=== PATIENT | female | born 1985 | race Caucasian/White ===

== ENCOUNTER 2016-09-21 17:34 | Inpatient (IN) ==
[2016-09-21] MEDS ORDERED: NS 1,000 ML IV ONE ×2 (18:15→22:16)
[2016-09-21] MEDS ORDERED: ZOFRAN IV ONE ×2 (18:15→19:46)
--- NOTE | 2016-09-21 18:24 | PROVIDER DOCUMENTATION ---
HPI-Abdominal Pain/GI Problem <ArroyoZully - Last Filed: 09/21/16 19:54> - General Source: patient - History of Present Illness-ABD Nature of Presenting Problems: 31 Y/O F presents to ED with Abdominal Pain. Pt states that she has had an onset of 3x days with RUQ. Pt c/o of severe V/N. Pt states that there is radiation to her back that has been constant, stabbing feeling , unrelieved with OTC meds. pt recently had a baby 6 weeks ago. With SOB. Abdominal Pain Onset Location: reports: RUQ Pain Radiation: reports: back Quality of Pain: reports: stabbing Severity in ED: reports: moderate, severe Onset/Duration: reports: 3 days ago Timing: reports: still present, constant Associated Symptoms: reports: nausea, shortness of breath, vomiting. denies: diarrhea <Nikkie Hughes - Last Filed: 09/22/16 02:05> - General Chief Complaint: Abdominal Pain Stated Complaint: ABD PAIN Time Seen by Provider: 09/21/16 17:40 Allergies/Adverse Reactions: Patient Allergies Allergy/AdvReac Type Severity Reaction Status Date / Time latex AdvReac SWELLING Verified 09/21/16 17:39 steroids AdvReac SWELLING Uncoded 09/21/16 17:39 Home Medications: Home Medication List Medication Instructions Recorded Confirmed Last Taken Type No Home Medications 09/21/16 09/21/16 Unknown History Review of Systems - Adult - REVIEW OF SYSTEMS - ADULT Constitutional: denies: chills, fever Eyes: reports: no symptoms reported Ears, Nose, Mouth & Throat: reports: no symptoms reported Cardiovascular: reports: no symptoms reported Respiratory: reports: shortness of breath. denies: cough Gastrointestinal: reports: abdominal pain, nausea, vomiting. denies: diarrhea Genitourinary: reports: no symptoms reported Musculoskeletal: reports: no symptoms reported Integumentary: reports: no symptoms reported Neurological: reports: no symptoms reported Psychiatric: reports: no symptoms reported Endocrine: reports: no symptoms reported Hematologic/Lymphatic: reports: no symptoms reported Allergic/Immunologic: reports: no symptoms reported All Other Systems: Reviewed and Negative <Nikkie Hughes - Last Filed: 09/22/16 02:05> Past History - Adult - PAST MEDICAL HISTORY-ADULT Review of Records: reports: Old Records Reviewed, Nursing Assessment Review, Medications Reviewed, Social history reviewed & non-contributory. - SOCIAL HISTORY Smoking: non-smoker Substance Use: none/never Living Situation: family <Nikkie Hughes - Last Filed: 09/22/16 02:05> Physical Exam-General - CONSTITUTIONAL General Appearance: appears well, alert, no apparent distress - EYES Eyes: PERRL/EOMI, pink conjunctivae, fundi clear, no AV nicking - HEAD, EARS, NOSE, MOUTH & THROAT HENMT: normocephalic/atraumatic, moist mucous membranes, normal ENT inspection, TMs normal, pharynx normal - NECK Neck: non-tender, full range of motion, supple, normal inspection - RESPIRATORY Respiratory: chest non-tender, lungs clear, normal breath sounds - CARDIOVASCULAR Cardiovascular: normal peripheral pulses, regular rate, rhythm - GASTROINTESTINAL (ABDOMEN) Abdominal Exam: normal bowel sounds, tenderness - LYMPHATIC Lymphatic: no adenopathy - MUSCULOSKELETAL Back Exam: normal inspection, no CVA tenderness, no vertebral tenderness Extremity: normal range of motion, non-tender - SKIN Integumentary: normal color, normal turgor, warm/dry - NEUROLOGIC Neurologic: commercial drafter II-XII nml as tested - PSYCHIATRIC Psych/Mental Status: normal mood/affect, normal thought content, normal thought process, oriented x 3 <Nikkie Hughes - Last Filed: 09/22/16 02:05> Progress - PLAN OF CARE/RESULTS Progress/Plan/Lab Results: 1939: discussed patient's care with Dr. Tillman, 1944: Dr. Tillman at bedside with patient - CHANGE OF SHIFT REPORT (ED Provider) Report Given and Care Transferred to:: nichole Time of Transfer: 19:50 Items Pending: CT/MRI Results <Zully Cruz - Last Filed: 09/21/16 19:54> - PLAN OF CARE/RESULTS Progress/Plan/Lab Results: Laboratory Tests 09/21/16 09/21/16 09/21/16 18:25 18:25 18:25 WBC 16.35 H RBC 5.08 Hgb 14.4 Hct 42.2 MCV 83.1 MCH 28.3 MCHC 34.1 RDW Std Deviation 13.3 Plt Count 375 MPV 9.5 Immature Gran % (Auto) 0.2 Neut % (Auto) 87.9 H Lymph % (Auto) 6.5 L Divide % (Auto) 4.9 Eos % (Auto) 0.2 Baso % (Auto) 0.3 Immature Gran # (Auto) 0.03 Neut # (Auto) 14.36 H Lymph # (Auto) 1.07 L Divide # (Auto) 0.80 H Eos # (Auto) 0.04 Baso # (Auto) 0.05 Segmented Neutrophils 96 H Lymphocytes 4 L Sodium 141 Potassium 3.1 L Chloride 102 Carbon Dioxide 20 L Anion Gap 19 BUN 7 L Creatinine 0.6 Estimated GFR/1.73 m2 > 60 BUN/Creatinine Ratio 12 Glucose 123 H Calculated Osmolality 281 Calcium 9.3 Magnesium Total Bilirubin 4.30 H AST 98 H ALT 104 H Alkaline Phosphatase 191 H Total Protein 7.7 Albumin 4.4 Globulin 3.0 Albumin/Globulin Ratio 1.0 Amylase > 7500 H Lipase > 3000 H Plasma Lactate Urine Source Urine Color Urine Clarity Urine pH Ur Specific [place] Urine Protein Urine Ketones Urine Blood Urine Nitrite Urine Bilirubin Urine Urobilinogen Urine Microscopic RBC Urine WBC Urine Microscopic WBC Ur Epithelial Cells Urine Crystals Urine Bacteria Urine Casts Urine Yeast Urine Glucose Plasma/Serum Ethyl Alc 09/21/16 09/21/16 09/21/16 18:33 18:33 18:33 WBC RBC Hgb Hct MCV MCH MCHC RDW Std Deviation Plt Count MPV Immature Gran % (Auto) Neut % (Auto) Lymph % (Auto) Divide % (Auto) Eos % (Auto) Baso % (Auto) Immature Gran # (Auto) Neut # (Auto) Lymph # (Auto) Divide # (Auto) Eos # (Auto) Baso # (Auto) Segmented Neutrophils Lymphocytes Sodium Potassium Chloride Carbon Dioxide Anion Gap BUN Creatinine Estimated GFR/1.73 m2 BUN/Creatinine Ratio Glucose Calculated Osmolality Calcium Magnesium 1.8 Total Bilirubin AST ALT Alkaline Phosphatase Total Protein Albumin Globulin Albumin/Globulin Ratio Amylase Lipase Plasma Lactate Urine Source CLEAN CATCH Urine Color ZEINAB Urine Clarity VERY CLOUDY A Urine pH 5.0 Ur Specific [place] 1.020 Urine Protein 1+(30 mg/dL) A Urine Ketones 3+(Large) A Urine Blood 2+ A Urine Nitrite NEGATIVE Urine Bilirubin 3+ A Urine Urobilinogen 3+(8 mg/dL) Urine Microscopic RBC 10-20 A Urine WBC 2+ A Urine Microscopic WBC 20-40 A Ur Epithelial Cells >10 A Urine Crystals NONE SEEN Urine Bacteria 2+ Urine Casts NONE SEEN Urine Yeast NONE SEEN Urine Glucose NEGATIVE Plasma/Serum Ethyl Alc 09/21/16 20:53 WBC RBC Hgb Hct MCV MCH MCHC RDW Std Deviation Plt Count MPV Immature Gran % (Auto) Neut % (Auto) Lymph % (Auto) Divide % (Auto) Eos % (Auto) Baso % (Auto) Immature Gran # (Auto) Neut # (Auto) Lymph # (Auto) Divide # (Auto) Eos # (Auto) Baso # (Auto) Segmented Neutrophils Lymphocytes Sodium Potassium Chloride Carbon Dioxide Anion Gap BUN Creatinine Estimated GFR/1.73 m2 BUN/Creatinine Ratio Glucose Calculated Osmolality Calcium Magnesium Total Bilirubin AST ALT Alkaline Phosphatase Total Protein Albumin Globulin Albumin/Globulin Ratio Amylase Lipase Plasma Lactate 0.9 Urine Source Urine Color Urine Clarity Urine pH Ur Specific [place] Urine Protein Urine Ketones Urine Blood Urine Nitrite Urine Bilirubin Urine Urobilinogen Urine Microscopic RBC Urine WBC Urine Microscopic WBC Ur Epithelial Cells Urine Crystals Urine Bacteria Urine Casts Urine Yeast Urine Glucose Plasma/Serum Ethyl Alc Orders Category Date Time Status Admit - [facility] Routine AdmDCTranf 09/21/16 22:36 Ordered Activity - Strict Bedrest ORDERED Care 09/21/16 22:35 Active Call Admitting on Arrival AT ADMISSION Care 09/21/16 22:37 Active ED: Urine Bedside ORDERED Care 09/21/16 18:17 Completed Nursing- MD Consult Request ROUTINE Care 09/21/16 22:40 Completed Saline Loc DIRECTED Care 09/21/16 22:35 Active Vital Signs Order ARRIVAL TO ROOM Care 09/21/16 22:35 Active Physician/Provider Consults Stat Cons 09/21/16 22:39 Ordered NPO Diet 09/21/16 22:38 Active ABDOMEN/PELVIS W/CONTRAST [CT] Stat Exams 09/21/16 19:07 Taken AMYLASE [CHEM] Stat Lab 09/21/16 18:25 Completed CBC WITH DIFF [HEME] Stat Lab 09/21/16 18:25 Completed CMP [COMPREHENSIVE METABOLIC PANEL] [CHEM] Stat Lab 09/21/16 18:25 Completed ETOH [ALCOHOL BLOOD] Stat Lab 09/21/16 18:33 Completed LACTATE, PLASMA [CHEM] Stat Lab 09/21/16 20:53 Completed LIPASE [CHEM] Stat Lab 09/21/16 18:25 Completed MAGNESIUM [CHEM] Stat Lab 09/21/16 18:33 Completed UA [URINALYSIS PL] [URINALYSIS] Stat Lab 09/21/16 18:33 Completed URINE CULTURE [RM] Routine Lab 09/21/16 19:28 Received URINE MICROSCOPIC [URINALYSIS] Stat Lab 09/21/16 18:33 Completed 0.9% Sodium Chloride Inj [Ns] 1,000 ml Med 09/21/16 22:16 Active IV 150 mls/hr 0.9% Sodium Chloride Inj [Ns] 1,000 ml Med 09/21/16 22:45 Active IV 150 mls/hr 0.9% Sodium Chloride Inj [Ns] 1,000 ml Med 09/21/16 18:15 Discontinued IV 999 mls/hr Acetaminophen [Tylenol] Med 09/21/16 18:54 Discontinued 1,000 mg .ROUTE .STK-MED ONE Acetaminophen [Tylenol] Med 09/21/16 18:56 Discontinued 1,000 mg PO NOW ONE Diphenhydramine [Benadryl] Med 09/21/16 22:04 Discontinued 50 mg IV NOW ONE Famotidine [Pepcid] Med 09/21/16 22:04 Discontinued 20 mg IV NOW ONE Hydromorphone [Dilaudid] Med 09/22/16 01:34 Discontinued 1 mg .ROUTE .STK-MED ONE Morphine Med 09/22/16 00:24 Discontinued 10 mg .ROUTE .STK-MED ONE Morphine Med 09/21/16 22:35 Active 2 mg IV Q2H PRN PRN Morphine Med 09/21/16 19:46 Discontinued 4 mg IV NOW ONE Morphine Med 09/21/16 21:44 Discontinued 4 mg IV NOW ONE Ondansetron [Zofran] Med 09/21/16 18:15 Discontinued 4 mg IV NOW ONE Ondansetron [Zofran] Med 09/21/16 19:46 Discontinued 4 mg IV NOW ONE Piperacil/Tazobact 3.375 gm/Ns [Zosyn 3.375 gm/Ns] 50 Med 09/21/16 22:15 Discontinued ml IV NOW Piperacil/Tazobact 3.375 gm/Ns [Zosyn 3.375 gm/Ns] 50 Med 09/22/16 02:00 Active ml IV Q6HR Sodium Chloride 0.9% Med 09/21/16 22:04 Discontinued 5 - 10 ml INJ NOW ONE Sodium Chloride 0.9% 10 ml Med 09/22/16 00:25 Discontinued .ROUTE As Directed Telemetry [OM.EQ] Routine Oth 09/21/16 22:35 Active Transfer/Admit Order [TRANSFER] Routine Transfer 09/21/16 22:35 Completed Vital Signs - 24 hr 09/21/16 09/21/16 09/21/16 17:37 18:43 20:17 Temperature 98.0 F Pulse Rate 118 H 82 92 H Respiratory 18 20 27 H Rate Blood Pressure 112/80 126/79 109/76 O2 Sat by Pulse 98 100 95 Oximetry 09/21/16 09/21/16 09/22/16 22:24 23:42 00:36 Temperature 100.5 F H 98.7 F Pulse Rate 94 H 100 H 90 Respiratory 24 24 Rate Blood Pressure 122/81 122/81 130/64 O2 Sat by Pulse 93 L 96 98 Oximetry - CT/MRI 1 CT Study: Abdomen, Pelvis Impression: Abnormal (Acute pancreatitis with substantial peripancreatic edema. Distended gallbladder which appears to contain small noncalcified gallstones and some sludge) <Nikkie Hughes - Last Filed: 09/22/16 02:05> Departure <Zully Cruz - Last Filed: 09/21/16 19:54> - Departure Time of Disposition Order: 22:35 Certified Medical Emergency: Emergent <Nikkie Hughes - Last Filed: 09/22/16 02:05> - Departure DIAGNOSIS: Gallstone pancreatitis Disposition: ADMITTED INPATIENT 09 Condition: Stable Attestation - Scribe Verification/Attestation Scribe:: Nikkie Hughes Acting as Scribe for:: Silvestre Tillman Scribe documention review:: This chart was documented by a scribe and accurately reflects the service the provider performed and the decisions made by the provider. - Physician/ AMANDA Attestation Patient care was provided by Advanced Practice Provider:: Yes Advanced Practice Provider:: Zully Cruz Advanced Practice Provider documentation review:: The Mid-level provider documentation, treatment plan and medical decision making was reviewed by the physician who agrees with all treatment and medical decision making by the MLP. <Nikkie Hughes - Last Filed: 09/22/16 02:05> Physician Attestation
[2016-09-21 18:38] LABS: URINE SOURCE CLEAN CATCH
[2016-09-21 18:46] LABS: BASO% 0.3 % (0.0-0.8); EOS# 0.04 X1000 (0.0-0.7); EOS% 0.2 % (0.0-10.0); HEMATOCRIT 42.2 % (37.0-47.0); HEMOGLOBIN 14.4 g/dL (12.0-16.0); IMM GRAN# 0.03 X1000 (0.0-0.04); IMM GRAN% 0.2 % (0.0-0.5); LYMPH# 1.07 X1000 (1.2-3.4); LYMPH% 6.5 % (20.5-51.1); MANUAL DIFF NEEDED? YES; MCH 28.3 PG (27-31); MCHC 34.1 g/dL (33-37); MCV 83.1 FL (81-99); MONO% 4.9 % (1.7-9.3); MPV 9.5 FL (7.4-10.4); NEUT% 87.9 % (42.2-75.2); PLT 375 X1000 (130-400); RBC 5.08 XMIL (4.2-5.4)
[2016-09-21] MEDS ORDERED: TYLENOL ONE (18:54)
[2016-09-21] MEDS ORDERED: TYLENOL PO ONE (18:56)
[2016-09-21 19:04] LABS: BILIRUBIN URINE 3+ (NEGATIVE); BLOOD URINE 2+ (NEGATIVE); CLARITY VERY CLOUDY (CLEAR); COLOR AMBER; GLUCOSE URINE NEGATIVE (NEGATIVE); LEUKOCYTES URINE 2+ (NEGATIVE); NITRITE URINE NEGATIVE (NEGATIVE); PROTEIN URINE 1+(30 mg/dL) mg/dL (NEGATIVE); URINE MICROSCOPIC NEEDED? YES
[2016-09-21 19:15] LABS: LYMPHS 4 % (21-51)
[2016-09-21 19:17] LABS: AGAP 19; ALBUMIN 4.4 g/dL (3.5-5.0); ALKALINE PHOSPHATASE 191 U/L (32-104); BUN 7 mg/dL (8-22); CALCIUM 9.3 mg/dL (8.8-10.2); CHLORIDE 102 mmol/L (98-107); COSMO 281; GOT 98 U/L (10-30); GPT 104 U/L (10-36); POTASSIUM 3.1 mmol/L (3.5-5.1); SODIUM 141 mmol/L (136-145); TCO2 20 mmol/L (25-35); TOTAL PROTEIN 7.7 g/dL (6.3-8.3)
[2016-09-21 19:26] LABS: AMYLASE > 7500 U/L (20-200)
[2016-09-21 19:32] LABS: URINE EPITHELIAL CELLS >10 /HPF (<10); URINE WBC 20-40 /HPF (<10)
[2016-09-21 19:33] LABS: URINE CAST NONE SEEN /LPF; URINE CRYSTAL NONE SEEN /HPF; UROBILINOGEN URINE 3+(8 mg/dL)
[2016-09-21] MEDS ORDERED: MORPHINE IV ONE ×2 (19:46→21:44)
[2016-09-21] MEDS ORDERED: BENADRYL IV ONE (22:04)
[2016-09-21] MEDS ORDERED: SODIUM CHLORIDE 0.9% INJ ONE (22:04)
[2016-09-21] MEDS ORDERED: PEPCID IV ONE (22:04)
[2016-09-21] MEDS ORDERED: ZOSYN 3.375 GM/NS 50 ML IV ONE (22:15)
[2016-09-21] MEDS ORDERED: MORPHINE IV PRN (22:35)
[2016-09-22] MEDS ORDERED: MORPHINE ONE (00:24)
[2016-09-22] MEDS ORDERED: SODIUM CHLORIDE 0.9% 10 ML ONE (00:25)
[2016-09-22] MEDS: NS 1,000 ML IV SCH ×4 (00:32→20:15)
[2016-09-22] MEDS ORDERED: DILAUDID ONE (01:34)
[2016-09-22] MEDS ORDERED: ZOSYN 3.375 GM/NS 50 ML IV SCH (02:00)
[2016-09-22] MEDS ORDERED: TYLENOL PO PRN ×2 (02:17→02:32)
[2016-09-22] MEDS ORDERED: NS 1,000 ML IV ONE (02:21)
[2016-09-22] MEDS ORDERED: PROTONIX IV SCH (02:30)
[2016-09-22] MEDS: POTASSIUM CHLORIDE 20 MEQ/SWI 100 ML IV SCH ×2 (03:22→05:14)
[2016-09-22] MEDS: ZOSYN 3.375 GM/NS 50 ML IV SCH ×3 (05:11→20:16)
--- NOTE | 2016-09-22 05:59 | HISTORY AND PHYSICAL ---
DATE AND TIME OF HISTORY AND PHYSICAL: September 22, 2016 at 01:45. CHIEF COMPLAINT: Abdominal pain. HISTORY OF PRESENT ILLNESS: Ms. Goodman is a 31-year-old female who presented to the ER at [facility] at approximately 17:30 on September 21, 2016 with complaints of abdominal pain for 3 days. Patient complains of constant sharp/stabbing abdominal pain times 3 days that is in the epigastric area and radiating through to her back. She also reports nausea and vomiting as well. She denies any diarrhea. The patient reports that she is approximately 6 weeks from a vaginal delivery of a healthy baby boy. Patient reports that she did have trouble with her gallbladder throughout her . She also reports that she has had a fever. She did present at [facility] with a temperature of 100.5. She denies any headache, dizziness, chest pain, shortness of breath, dysuria, urinary frequency, or pain, numbness, or tingling in extremities. Upon evaluation in the ER at [facility], patient was found to have elevated white blood cell count of 16.35. Liver enzymes as well as amylase and lipase were also elevated. A CT abdomen and pelvis did show acute pancreatitis with substantial peripancreatic edema. No obvious pancreatic necrosis or discrete pseudocyst identified. Also noted was distended gallbladder which appeared to contain a small noncalcified gallstone and some sludge. No definite cholecystitis identified. No bowel obstruction or free air identified. At this time, the patient will be transferred to [facility] and will be admitted for further treatment and evaluation of her gallstone pancreatitis. REVIEW OF SYSTEMS: A 14-point review of systems was conducted with the patient and all were negative except for pertinent positives mentioned in above HPI. PAST MEDICAL HISTORY: Patient denies any past medical history. PAST SURGICAL HISTORY: Patient denies any previous surgeries. SOCIAL HISTORY: Patient denies any previous history of tobacco, alcohol, or illicit drug use. FAMILY HISTORY: Patient denies any known family medical problems. ALLERGIES: Patient reports allergy to latex and steroids. HOME MEDICATIONS: Patient denies any prescription medications. DIAGNOSTIC DATA: Laboratory results: White blood cell count 16.35, hemoglobin 14.4, hematocrit 42.2, platelet count 375. Sodium 141. Potassium 3.1. Chloride 102. Bicarbonate 20. BUN 7. Creatinine 0.6. Glucose 123. Calcium 9.3. Magnesium 1.8. Total bilirubin is 4.30. AST 98. ALT 104. Alkaline phosphatase 191. Amylase is greater than 7500. Lipase greater than 3000. Plasma lactate is 0.9. Serum alcohol was zero. Urinalysis was obtained via clean catch, was positive for protein, ketones, blood, bilirubin, 10-20 microscopic RBCs, 2-plus white blood cells, 20-40 microscopic white blood cell count, and 2-plus bacteria. CT abdomen and pelvis with contrast showed acute pancreatitis with substantial peripancreatic edema. No obvious pancreatic necrosis. No discrete pseudocyst. Distended gallbladder which appeared to contain small noncalcified gallstones and some sludge. No definite cholecystitis identified. No bowel obstruction and no free air. Pending diagnostic studies at this time are EKG, PT, PTT, and a urine culture. PHYSICAL EXAMINATION: VITAL SIGNS: Temperature 98.7, heart rate 90, respirations 20, blood pressure 130/64, oxygen saturation is 98% room air. GENERAL: Ms. Goodman is a well-nourished, well-developed, pleasant 31-year-old female who is resting in the inpatient bed. She was in no acute distress though did appear to have some discomfort and pain noted upon examination. HEENT: Head is atraumatic, normocephalic. Pupils equal, round, reactive to light, were 3 mm bilaterally and brisk. Sclerae were white. No lesions noted. Subconjunctivae are pink. Oral mucosa slightly dry. Oropharynx is clear. NECK: Supple. Trachea midline. CARDIOVASCULAR: Patient has a normal S1, S2. No murmurs, gallops, or rubs appreciated with a regular rate and rhythm. PULMONARY: Patient has symmetrical chest expansion bilaterally. Lung sounds are clear to auscultation in bilateral full torres. ABDOMEN: Soft, nondistended. The patient did have tenderness upon palpation in the epigastric area. Bowel sounds were present in all 4 quadrants though were hypoactive. EXTREMITIES: No cyanosis, clubbing, or edema noted. Pulse, motor, and sensory were intact in all extremities. Pedal pulses were 3 plus bilaterally. INTEGUMENTARY: The patient's skin is pink, warm, dry, and intact. No lesions or sores noted. NEUROLOGICAL: Patient is alert and oriented to person, place, time, and situation. Cranial nerves II through XII are grossly intact. ASSESSMENT AND PLAN: 1. Gallstone pancreatitis. For this, we have consulted Dr. Lehman with Surgery as well as Dr. Carrillo with Gastroenterology. We will await their evaluation and further recommendations. At this time, the patient will be placed n.p.o. We will do fluid resuscitation with a total of 2 L normal saline bolus and then continue normal saline at 150 mL per hour. For pain, we will treat the patient with Dilaudid 1 mg IV q.3 hours as needed. 2. Leukocytosis. The patient has reported fever. Given her abdominal pain as well as urinary tract infection, we have placed her on Zosyn 3.375 g IV q.6 hours and we will continue to follow. 3. Urinary tract infection. We will continue with treatment as mentioned above with Zosyn and we are awaiting a urine culture at this time. 4. Nausea, vomiting. We will continue with fluid resuscitation and Zofran p.r.n. as needed. 5. Fluid volume depletion. We will continue with fluid resuscitation as mentioned in number 1 and continue to follow. 6. Hypokalemia. This is likely secondary to nausea and vomiting. We have placed an order for potassium 40 mEq IV and then we will repeat a BMP in the morning. Patient will be placed on the medical floor with telemetry. She will have vital signs q.4 h. DVT prophylaxis will be provided with Lovenox 40 units subcutaneous q.24 h. GI prophylaxis with Protonix 40 mg IV q.24 h. We will do strict intake and output. Further orders and recommendations pending hospital course, diagnostic studies, and physician evaluation. Dictated by MARTA Le for Yokasta Yoder MD
[2016-09-22] MEDS: DILAUDID IV PRN ×6 (06:10→23:48)
[2016-09-22 07:02] LABS: BASO% 0.1 % (0.0-0.8); HEMATOCRIT 41.6 % (37.0-47.0); HEMOGLOBIN 13.6 g/dL (12.0-16.0); IMM GRAN# 0.04 X1000 (0.0-0.04); IMM GRAN% 0.4 % (0.0-0.5); LYMPH# 0.56 X1000 (1.2-3.4); LYMPH% 4.9 % (20.5-51.1); MANUAL DIFF NEEDED? YES; MCH 27.9 PG (27-31); MCHC 32.7 g/dL (33-37); MCV 85.2 FL (81-99); MONO# 0.54 X1000 (0.11-0.59); MONO% 4.8 % (1.7-9.3); MPV 9.4 FL (7.4-10.4); NEUT% 89.8 % (42.2-75.2); PLT 341 X1000 (130-400); RBC 4.88 XMIL (4.2-5.4)
[2016-09-22 07:03] LABS: INR 1.08; PROTIME 11.4 Seconds (9.2-11.7); PTT 26.2 Seconds (22.0-36.0)
[2016-09-22 07:25] LABS: AGAP 18; ALBUMIN 3.6 g/dL (3.5-5.0); ALKALINE PHOSPHATASE 157 U/L (32-104); BUN 6 mg/dL (8-22); CALCIUM 8.3 mg/dL (8.8-10.2); CHLORIDE 107 mmol/L (98-107); COSMO 283; GOT 52 U/L (10-30); GPT 76 U/L (10-36); POTASSIUM 4.2 mmol/L (3.5-5.1); SODIUM 142 mmol/L (136-145); TCO2 17 mmol/L (25-35); TOTAL BILIRUBIN 1.99 mg/dL (0.20-1.00); TOTAL PROTEIN 6.5 g/dL (6.3-8.3)
[2016-09-22 07:30] LABS: LIPASE 1505 U/L (13-60)
[2016-09-22 07:33] LABS: MONO 4 % (1-9)
[2016-09-22 07:34] LABS: LARGE PLATELETS OCCASIONAL
--- NOTE | 2016-09-22 07:41 | Diag Imaging Result Document ---
PROCEDURE NAME: ABDOMEN/PELVIS W/CONTRAST - 09/21/2016 CT ABDOMEN AND PELVIS WITH INTRAVENOUS CONTRAST: A CT dose reduction protocol was used. COMPARISON: None. FINDINGS: The lung bases are clear and the heart size is normal. There is extremely severe fluid surrounding the entire pancreas and extending into the peritoneum and retroperitoneal spaces. This is indistinct fluid. The pancreas, otherwise, enhances uniformly. The gallbladder is distended with some small stones or sludge. The liver, spleen, adrenals, and kidneys are normal. No bowel obstruction or inflammation. Urinary bladder, uterus, and rectum are normal. Bones are intact. IMPRESSION: 1. Very severe acute pancreatitis. 2. Sludge or stones in the gallbladder. [facility]
--- NOTE | 2016-09-22 07:43 | CONSULTATION ---
DATE OF CONSULTATION: 09/21/2016 HISTORY OF PRESENT ILLNESS: This is a 31-year-old female, who is 6 weeks , with known symptomatic cholelithiasis during , who presents with at least a 3-day history of severe epigastric abdominal pain radiating to her back. This has progressed over the last 3 days with significant nausea and vomiting associated with it. Some possible yellowing of her skin that she has noted. She presented to [facility]. A CT scan was obtained that showed severe pancreatitis without necrosis, but significant peripancreatic fluid and sludge in her gallbladder. She denies any alcohol. No family history of pancreatitis. This is her first episode of pancreatitis. She did have several "gallbladder attacks" during her , but she has never been evaluated by surgery for this. PAST MEDICAL HISTORY: 6 weeks ago, otherwise negative. PAST SURGICAL HISTORY: Negative. SOCIAL HISTORY: She denies tobacco, alcohol, or drugs. Lots of family with her here today. She is and has a 6-week-old baby. FAMILY HISTORY: Negative for pancreatitis or cancer. REVIEW OF SYSTEMS: A 10-point is negative except for what is mentioned in the HPI. PHYSICAL EXAMINATION: Vital Signs: She was mildly tachycardic when she got here. Temperature is 98 degrees, pulse 94 now, blood pressure 122/81, and O2 saturation is 93% on room air. General: She is alert, obviously uncomfortable, but in no acute distress. HEENT: There is no scleral icterus. Mucous membranes are dry. Cardiovascular: Normal rate, regular rhythm. Pulmonary: No increased work of breathing. Abdomen: Soft. Some mild epigastric tenderness, but no peritonitis otherwise. Integumentary: Warm and dry. Some slight yellowing of her skin. Extremities: No lower extremity edema. DIAGNOSTIC DATA: Labs reviewed. She has a leukocytosis of 16, hematocrit 42, platelets 375,000. Sodium is 141, potassium 3.1, chloride 102, CO2 is 20, BUN is 7, creatinine 0.6, glucose elevated at 123. Bilirubin is elevated at 4.3, AST is 98, ALT is 104, alkaline phosphatase 191. Lipase is undetectable, high, greater than 3000. Amylase is greater than 7500. Lactate is 0.9. Urinalysis does have white blood cells, 2+ bilirubin and blood, ketones. A CT scan shows pancreatic edema, sludge in the gallbladder, significant peripancreatic fluid extending down the right retroperitoneum. I see no free air. Contrast goes through the duodenum. I do not see any extravasation from her duodenum. ASSESSMENT: This is a 31-year-old female with apparent gallstone pancreatitis. It is unclear if she has some degree of cholangitis. She does have some leukocytosis, but does not have significant abdominal tenderness. I suspect this is severe gallstone pancreatitis, and she is quite dehydrated from her last 3 days of being ill at home. Her bilirubin is elevated. This is our first check of labs. It is unclear this is down- or up-trending. PLAN: 1. Admit her to the medicine service. 2. I recommend transferred to [facility] in case her LFTs worsen, and she will require ERCP for stone extraction. 3. Recommend strict bowel rest with strict n.p.o. 4. IV fluids. I recommend lactated Ringer's at 150 mL an hour, at least for the next 24 hours, for aggressive rehydration. Her heart rate has improved with her fluid that she has got in the emergency department today. 5. I would also recommend continuing the Zosyn, not for pancreatitis, but for possible ascending cholangitis and a urinary tract infection. 6. We will follow her closely. If her LFTs normalize and her pain resolves, we will plan for interval cholecystectomy in the next few days as her symptoms resolve. We did discuss that she is at much higher risk in the setting of severe pancreatitis of common bile duct injury or other adverse outcome. We will follow her closely. I worry that she will possibly get worse before she gets better given the extensive changes noted on her CT scan. I did not see any necrosis of her pancreas and it all enhances normally. Continue to follow along closely. 7. Please obtained at least daily LFTs, amylase and lipase. 8. We will defer pain management and antiemetic management to the hospitalist service. 9. I discussed this plan with the emergency staff.
[2016-09-22] MEDS: ZOFRAN IV PRN ×3 (08:48→20:16)
[2016-09-22] MEDS: LOVENOX SUBQ SCH (08:48)
--- NOTE | 2016-09-22 11:00 | PROGRESS NOTE ---
DATE: 09/22/2016 SUBJECTIVE: Still hurting, although feels slightly better. Still nausea and vomiting. OBJECTIVE: Vital Signs: Temp 100.5 degrees overnight, pulse 90, blood pressure 151/89, oxygen saturation 96% on room air. General: She is alert. HEENT: No obvious scleral icterus or jaundice. Cardiovascular: Normal rate, rhythm. Abdomen: Soft and mild epigastric tenderness, but no peritonitis. LABS REVIEWED: White count 11, hematocrit 41, INR is normal at 1.08. Creatinine is 0.7. Bilirubin is down to 1.99 from 4.3. Transaminase, alkaline phosphatase are downtrending as well. Lipase is down at 1505 from greater than 3000. ASSESSMENT AND PLAN: This 31-year-old female is with apparent gallstone pancreatitis, quite severe pancreatitis noted on her scan and based off her clinical history. Recommend strict nothing by mouth with bowel rest, intravenous fluids. She is on antibiotics for possible ascending cholangitis and a urinary tract infection. I agree with this. I do not see a need for endoscopic retrograde cholangiopancreatography at this time as her liver function tests and lipase are improving. She would be high risk for a cholecystectomy at this time. We will monitor her through the weekend. As her symptoms resolve and her numbers normalize, will likely re-scan to ensure no evidence of pancreatic necrosis prior to undergoing laparoscopic cholecystectomy with cholangiogram. Discussed with Dr. Dewey. He will follow her through the weekend, but no plans for surgery this weekend. I will continue maximal supportive care for pancreatitis, which is quite severe in this young lady.
--- NOTE | 2016-09-22 17:09 | PROGRESS NOTE ---
DATE: 09/22/2016 SUBJECTIVE: This patient is still complaining of epigastric pain, she is still feeling weak with nausea, surgery department is on board. They are not planning to do any surgery , during this weekend. They are planning to keep this patient NPO with IV fluids. This patient is also on antibiotics and we are trying to cover her urinary tract infection and also the possibility of cholangitis. OBJECTIVE: Vital Signs: respiratory rate 20, blood pressure 127/72, O2 saturation 96% on room air. HEENT: Head normocephalic. No trauma. PERRLA. Neck: Supple. No JVD. No masses. Central trachea. Chest: Clear to auscultation. No wheezing. No rales. Cardiovascular: RRR. No murmurs. Abdomen: Soft. It is tender to palpation in the epigastric area and also right upper quadrant. Negative rebound. No signs of peritoneal irritation. Positive bowel sounds. Extremities: No edema. No clubbing. No cyanosis. Neurological: The patient is alert and oriented x3. No focal neurological deficits. LABORATORY: WBC 11.3, hemoglobin 13.6, hematocrit 41.6, platelets 341,000. Sodium 142, potassium 4.2, chloride 107, bicarbonate 17, BUN 6, creatinine 0.7, glucose 133. Calcium 8.3, total bilirubin 1.9, AST 52, ALT 76, alkaline phosphatase 157, albumin 3.6, lipase 1, 505. ASSESSMENT AND PLAN: 1. Acute pancreatitis, probably related to a gallstone, we had a CT scan that showed a very severe acute pancreatitis, also showed sludge or stones in the gallbladder. For now, we will continue with IV fluids. This patient will continue NPO and we will continue with pain medications as well. Surgery department is following this patient. 2. Leukocytosis. This is getting better. The WBC dropped from 16.35 to 11.3; we will continue to monitor. I will continue with the antibiotics. 3. Urinary tract infection. Continue with Zosyn. So far cultures have been negative. 4. Nausea and vomiting. We will continue with fluid resuscitation and Zofran p.r.n. 5. Fluid volume depletion. She looks much better right now. The blood pressure has been stable. She is not tachycardic. [facility]
[2016-09-22] MEDS: PROTONIX IV SCH (17:54)
[2016-09-22] MEDS: SODIUM CHLORIDE 0.9% INJ SCH (17:54)
--- NOTE | 2016-09-22 18:06 | CONSULTATION ---
DATE OF CONSULTATION: 09/22/2016 REFERRING PHYSICIAN: Yokasta Yoder M.D. PRIMARY HOSPITALIST: John Kang M.D. INDICATION FOR CONSULTATION: Acute pancreatitis. HISTORY OF PRESENT ILLNESS: The patient is a 31-year-old white female who is 6 weeks . Her only medical history is symptomatic gallstones during her . She presented to the emergency room with a 3-day history of severe epigastric pain radiating into her back as well as nausea with vomiting. Her CT scan was positive for severe acute pancreatitis without necrosis. There was significant peripancreatic fluid and sludge with stones in the gallbladder. We are asked to participate in her care. Since admission, she reports that she is still having 8 to 10/10 abdominal pain and nausea. She denies vomiting. She reports constipation since Sunday. Otherwise, she denies complaints. PAST MEDICAL HISTORY: 1. for 6 weeks. 2. Symptomatic cholelithiasis during . PAST SURGICAL HISTORY: None. SOCIAL HISTORY: Negative for alcohol, tobacco or recreational drug use. She is and has a 6-week-old. FAMILY HISTORY: Negative for colon cancer, pancreatic cancer, esophageal cancer. REVIEW OF SYSTEMS: Remarkable for the information as noted above. PHYSICAL EXAM: General: She is in no acute distress. Vital signs: Her blood pressure is 127/72, pulse 79, respiration 20, temperature of 98.4 degrees. HEENT: Negative for jaundice. Her conjunctivae are pale. Her oropharyngeal mucosa membranes are unremarkable. EENT is remarkable for mild jaundice. Her conjunctivae are normal. Her oropharyngeal mucosa membranes are slightly dry. Pulmonary: Lungs are clear to auscultation with normal expiratory effort. Cardiovascular Exam: Reveals regular rate and rhythm with no murmurs, gallops, or rubs. Abdominal Exam: Reveals hypoactive bowel sounds. The abdomen is soft with significant epigastric and right upper quadrant tenderness. There is no rebound or guarding. Extremities: Bilaterally are negative for cyanosis, clubbing, or edema. OBJECTIVE DATA: Remarkable for hemoglobin of 13.6 with hematocrit of 41.6 and a white count of 11.33 which is interval improvement from her admission leukocytosis of 16.35. She has 341,000 platelets. Her PT is 11.4 with an INR of 1.08 and a PTT of 26.2. Sodium is 142 , potassium 4.2, chloride 107, CO2 17, BUN 6, creatinine 0.7 with a glucose of 133. Calcium is 8.3 with a total bilirubin 1.99 which is interval improvement from admission of 4.30. AST is 52 , ALT 76, alkaline phosphatase 157, total protein 6.5, albumin 3.6. Her admission lipase was greater than 75,000. Her admission amylase was greater than 3000. On 09/23/2015 her lipase is 1505. Her plasma lactate on admission was 0.9. IMPRESSION: 1. Severe acute pancreatitis. 2. Symptomatic gallstones. 3. Constipation exacerbated by opioid use. 4. Abdominal pain. 5. Nausea with interval improvement in the vomiting. 6. Elevated liver function tests secondary to the gallstone pancreatitis. RECOMMENDATION: 1. Agree with IV fluids. 2. Continue Protonix as you are doing. However, I would increase the dose to 40 mg IV q.12 hours. 3. Continue DVT prophylaxis with Lovenox as you are doing. 4. I agree with the IV antibiotics. 5. The patient is currently receiving pain medications and has a history of mild constipation. I would administer Dulcolax suppository tonight and as needed to avoid severe refractory constipation which can contribute to abdominal pain. 6. If she continues to have nausea and severe epigastric pain, it may be reasonable to consider an EGD next week depending on her clinical course. 7. Will monitor her liver function tests. If they worsen throughout her hospital course, I will consult with Dr. Rafael Mesa for considerations for ERCP. Overnight, she has had interval improvement in her liver function tests and warrants clinical monitoring. 8. Will continue to follow along with you. Additional recommendations will follow based on her clinical course. [facility]
[2016-09-22] MEDS ORDERED: DULCOLAX PR ONE (20:00)
[2016-09-23] MEDS: ZOFRAN IV PRN ×3 (00:11→10:09)
[2016-09-23] MEDS: ZOSYN 3.375 GM/NS 50 ML IV SCH ×4 (02:00→21:39)
[2016-09-23] MEDS: NS 1,000 ML IV SCH ×5 (02:11→21:39)
[2016-09-23] MEDS: DILAUDID IV PRN ×7 (02:56→21:40)
[2016-09-23] MEDS: SODIUM CHLORIDE 0.9% INJ SCH ×4 (06:15→21:40)
[2016-09-23] MEDS: PROTONIX IV SCH ×2 (06:15→17:25)
[2016-09-23 07:03] LABS: BASO% 0.1 % (0.0-0.8); HEMATOCRIT 37.8 % (37.0-47.0); HEMOGLOBIN 12.6 g/dL (12.0-16.0); IMM GRAN# 0.03 X1000 (0.0-0.04); IMM GRAN% 0.2 % (0.0-0.5); LYMPH% 6.4 % (20.5-51.1); MANUAL DIFF NEEDED? YES; MCH 28.6 PG (27-31); MCHC 33.3 g/dL (33-37); MCV 85.7 FL (81-99); MONO% 8.2 % (1.7-9.3); MPV 9.5 FL (7.4-10.4); NEUT% 85.1 % (42.2-75.2); PLT 280 X1000 (130-400); RBC 4.41 XMIL (4.2-5.4)
[2016-09-23 07:07] LABS: AGAP 16; ALBUMIN 3.2 g/dL (3.5-5.0); ALKALINE PHOSPHATASE 122 U/L (32-104); BUN 5 mg/dL (8-22); CALCIUM 9.3 mg/dL (8.8-10.2); CHLORIDE 106 mmol/L (98-107); COSMO 278; GOT 24 U/L (10-30); GPT 47 U/L (10-36); POTASSIUM 3.7 mmol/L (3.5-5.1); SODIUM 141 mmol/L (136-145); TCO2 19 mmol/L (25-35); TOTAL BILIRUBIN 1.22 mg/dL (0.20-1.00); TOTAL PROTEIN 6.1 g/dL (6.3-8.3)
[2016-09-23 07:26] LABS: BANDS 6 % (0-1); LYMPHS 6 % (21-51); MONO 8 % (1-9)
[2016-09-23] MEDS: LOVENOX SUBQ SCH (09:11)
--- NOTE | 2016-09-23 10:59 | EKG Report ---
Test Performed on : 09/23/2016 06:59:18 AM Test Reason : Pancreatitis, Poss. Surgical Patient Blood Pressure : / mmHG Vent. Rate : 107 BPM Atrial Rate : 107 BPM P-R Int : 130 ms QRS Dur : 080 ms QT Int : 330 ms P-R-T Axes : 036 009 -08 degrees QTc Int : 440 ms Sinus tachycardia. Cannot rule out Anterior infarct , age undetermined Abnormal ECG No previous ECGs available Unconfirmed Result
[2016-09-23] MEDS: PHENERGAN IV PRN ×2 (12:18→21:40)
[2016-09-23] MEDS: OFIRMEV 1000 MG/ISOTONIC SOLN 100 ML IV SCH ×2 (14:56→18:21)
[2016-09-23] MEDS: DULCOLAX PR PRN (14:59)
--- NOTE | 2016-09-23 16:36 | PROGRESS NOTE ---
DATE: 09/23/2016 SUBJECTIVE: This patient is still complaining of belly pain mostly at the level of the epigastric level. She is still having nausea. Surgery department and gastroenterology department are on board. I will continue with the IV fluids NPO and I will increase the dose of the pain medication and also Phenergan p.r.n. case discussed with Dr. Cedeño and we will repeat a liver function test and amylase and lipase. OBJECTIVE: Vital Signs: Temperature 99.3 degrees, pulse 115, respiratory rate 18, blood pressure 107/57, O2 saturation 97% on room air. HEENT: Head normocephalic. No trauma. PERRLA. Neck: Supple. No JVD. No masses. Central trachea. Chest: Clear to auscultation. No wheezing. No rales. Cardiovascular: RRR. No murmurs. Abdomen: Soft. It is tender to palpation in the epigastric area and right upper quadrant and left upper quadrant. Negative rebound. No signs of peritoneal irritation. Positive bowel sounds. Extremities: No edema. No clubbing. No cyanosis. Neurological: The patient is alert and oriented x3. No focal neurological deficits. LABORATORY: WBC 17, hemoglobin 12.6, hematocrit 37.8, platelets 280,000. Sodium 141, potassium 3.7, chloride 106, bicarbonate 19, BUN 5, creatinine 0.7, glucose 83, calcium 9.3, total bilirubin 1.2, AST 24, ALT 47, alkaline phosphatase 122, lipase 909, amylase 1251. ASSESSMENT AND PLAN: 1. Acute pancreatitis probably related to a gallstone. We had a CT scan that showed very severe acute pancreatitis, also showed sludge or stones in the gallbladder. For now will continue with the IV fluids. I will repeat CMP and amylase and lipase right now, she will continue NPO and fluids, I increased the dose of pain medication. 2. Leukocytosis. Yesterday the white blood cells were 11 and today is around 17. Will continue to monitor. She is getting antibiotics. 3. Urinary tract infection. Continue with Zosyn. So far cultures has been negative. 4. Nausea and vomiting. Will continue with fluid resuscitation, Zofran and also I added Phenergan to her medications. 5. Fluid volume depletion. She looks better right now, the blood pressure is stable. Will monitor.
[2016-09-23 17:49] LABS: AGAP 14; ALBUMIN 3.1 g/dL (3.5-5.0); ALKALINE PHOSPHATASE 106 U/L (32-104); AMYLASE 912 U/L (20-200); BUN 5 mg/dL (8-22); CALCIUM 8.6 mg/dL (8.8-10.2); CHLORIDE 106 mmol/L (98-107); COSMO 278; GOT 19 U/L (10-30); GPT 39 U/L (10-36); LIPASE 575 U/L (13-60); POTASSIUM 3.5 mmol/L (3.5-5.1); SODIUM 141 mmol/L (136-145); TCO2 21 mmol/L (25-35); TOTAL BILIRUBIN 1.12 mg/dL (0.20-1.00); TOTAL PROTEIN 5.9 g/dL (6.3-8.3)
[2016-09-23] MEDS ORDERED: MIRALAX PO ONE (20:30)
--- NOTE | 2016-09-23 20:47 | PROGRESS NOTE ---
DATE: 09/23/2016 SUBJECTIVE: The patient states that she has had 12/10 abdominal pain, nausea and vomiting. She has felt worse today than previously. She was evaluated by Dr. Kang who increased her Dilaudid to 2 mg every 3 hours and increased her Phenergan dose. Since that time, she reports her pain is 7/10 and she has had interval improvement in the nausea with vomiting. She describes severe sharp episodes of unbearable abdominal pain in the right upper quadrant. She continues to have diffuse abdominal pain that is 8/10. Overnight, she spiked a temperature to 101 degrees. Otherwise, she denies symptoms. Of note, her last bowel movement was approximately 48 hours ago. OBJECTIVE: On exam, she is uncomfortable but in no acute distress. Her blood pressure is 107/57, pulse of 115, respiration 18, her temperature at the time of exam was 99.3. Her T-max is 101.0 degrees. Her abdomen remains distended with hypoactive bowel sounds. It is grossly tender and she declined abdominal exam. OBJECTIVE DATA: Remarkable for hemoglobin of 12.6 with hematocrit of 37.8 and a white count of 17.07. Her platelets are 280,000. Her sodium is 141, potassium 3.5, chloride 106, CO2 21, BUN 5, creatinine 0.6 with a glucose of 82. Her calcium is 8.6 with a total bilirubin of 1.12, AST is 19, ALT of 39, alkaline phosphatase of 106, total protein 5.9 and albumin of 3.1. Her amylase has decreased to 912 with a lipase of 575. IMPRESSION: 1. Severe acute pancreatitis. 2. Persistent abdominal pain. 3. Leukocytosis. 4. Increasing abdominal pain. 5. Constipation, likely opioid-induced. RECOMMENDATION: 1. With regard to her overall pancreatitis management, I would continue current IV fluids, Protonix and IV antibiotics. 2. Her increasing white blood cell count is of concern for ascending cholangitis. In light of her abdominal pain, she may require an ERCP over the next 24-48 hours. I will assess her clinical course and monitor her clinical signs. 3. The patient has had constipation. Therefore, I would begin Movantik once daily. I will also administer a dose of MiraLAX this evening to help facilitate defecation. She may also require a Dulcolax suppository to see if we can have an immediate response and improvement in her bowel habits. She had no response to the Dulcolax suppository that was administered last night. 4. She bears watching carefully with close monitoring of her blood pressure in light of her increased pain needs, leukocytosis and low-grade temperature. If her numbers continue to rise, I would have a low threshold for repeating a CT scan of her abdomen and pelvis to assess for pancreatic necrosis and/or other complications including a pseudocyst or abscess formation. MTDJeff
[2016-09-24] MEDS: NS 1,000 ML IV SCH ×2 (00:27→11:35)
[2016-09-24] MEDS: OFIRMEV 1000 MG/ISOTONIC SOLN 100 ML IV SCH ×5 (01:00→18:09)
[2016-09-24] MEDS: DILAUDID IV PRN ×7 (01:49→21:14)
[2016-09-24] MEDS: SODIUM CHLORIDE 0.9% INJ PRN (01:50)
[2016-09-24] MEDS: PHENERGAN IV PRN (01:50)
[2016-09-24] MEDS: ZOSYN 3.375 GM/NS 50 ML IV SCH ×4 (04:00→20:00)
[2016-09-24 07:07] LABS: MANUAL DIFF NEEDED? NO
[2016-09-24 07:12] LABS: BASO% 0.1 % (0.0-0.8); EOS# 0.01 X1000 (0.0-0.7); EOS% 0.1 % (0.0-10.0); HEMATOCRIT 33.9 % (37.0-47.0); HEMOGLOBIN 10.9 g/dL (12.0-16.0); IMM GRAN# 0.03 X1000 (0.0-0.04); IMM GRAN% 0.2 % (0.0-0.5); LYMPH# 1.53 X1000 (1.2-3.4); LYMPH% 10.1 % (20.5-51.1); MCH 28.2 PG (27-31); MCHC 32.2 g/dL (33-37); MCV 87.6 FL (81-99); MONO# 1.17 X1000 (0.11-0.59); MONO% 7.7 % (1.7-9.3); MPV 9.8 FL (7.4-10.4); NEUT% 81.8 % (42.2-75.2); PLT 248 X1000 (130-400); RBC 3.87 XMIL (4.2-5.4)
[2016-09-24] MEDS: SODIUM CHLORIDE 0.9% INJ SCH ×2 (07:55→20:00)
[2016-09-24] MEDS: MOVANTIK PO SCH (07:55)
[2016-09-24] MEDS: PROTONIX IV SCH ×2 (07:56→20:00)
[2016-09-24] MEDS: LOVENOX SUBQ SCH (07:56)
[2016-09-24 08:46] LABS: AGAP 17; ALBUMIN 2.8 g/dL (3.5-5.0); ALKALINE PHOSPHATASE 100 U/L (32-104); AMYLASE 514 U/L (20-200); BUN 6 mg/dL (8-22); CALCIUM 8.1 mg/dL (8.8-10.2); CHLORIDE 107 mmol/L (98-107); COSMO 281; GOT 14 U/L (10-30); GPT 31 U/L (10-36); LIPASE 175 U/L (13-60); POTASSIUM 3.6 mmol/L (3.5-5.1); SODIUM 143 mmol/L (136-145); TCO2 19 mmol/L (25-35); TOTAL BILIRUBIN 0.78 mg/dL (0.20-1.00); TOTAL PROTEIN 5.8 g/dL (6.3-8.3)
[2016-09-24] MEDS ORDERED: D50W SYRINGE IV ONE (11:18)
[2016-09-24] MEDS: D5 NS 1,000 ML IV SCH (16:00)
--- NOTE | 2016-09-24 16:23 | PROGRESS NOTE ---
DATE: 09/24/2016 SUBJECTIVE: This patient looks much better today. She is still having epigastric pain but the intensity has decreased. She denies nausea and vomiting. For now will continue with IV fluids, NPO, pain medication. Gastroenterology department is following this patient. OBJECTIVE: Vital Signs: Temperature 98.6 degrees, pulse 100, respiratory rate 18, blood pressure 110/65, oxygen saturation of 91% on room air. HEENT: Head normocephalic. No trauma. PERRLA. Neck: Supple. No JVD. No masses. Central trachea. Chest: Clear to auscultation. No wheezing. No rales. Cardiovascular: RRR. No murmurs. Tachycardic. Abdomen: Soft. Tender to palpation in the epigastric area. Positive bowel sounds. Extremities: No edema. No clubbing. No cyanosis. Neurological: The patient is alert and oriented x3. No focal neurological deficits. LABORATORY: WBC 15.1, hemoglobin 10.9, hematocrit 33.9, platelets 248,000. Sodium 143, potassium 3.6, chloride 107, bicarbonate 19, BUN 6, creatinine 0.6, glucose 64. AST 14, total bilirubin 0.7, ALT 31, alkaline phosphatase 100. Albumin 2.8. Amylase 514, lipase 175. ASSESSMENT AND PLAN: 1. Acute pancreatitis, likely related to gallstone. We had a CT scan of the abdomen that showed severe acute pancreatitis and also showed sludge or stones in the gallbladder. For now I will continue with the IV fluids. This patient is getting much better. I will continue monitoring this patient with CBC and CMP. She will continue NPO and pain medication. 2. Leukocytosis. This is getting a little bit better. Decreased from 17 to 15. Will continue to monitor. 3. Urinary tract infection. Continue with Zosyn. So far cultures are negative. 4. Nausea and vomiting. We will continue with fluid resuscitation, Zofran and also Phenergan in case of nausea p.r.n. 5. Fluid volume depletion. Resolved.
[2016-09-24] MEDS ORDERED: PERICOLACE PO ONE (18:15)
--- NOTE | 2016-09-24 21:34 | PROGRESS NOTE ---
DATE: 09/24/2016 SUBJECTIVE: The patient reports an interval improvement in her abdominal pain. She describes the pain as a 5/10. She reports resolution of the nausea with vomiting. She continues to have some abdominal pain with deep breathing. She states that she is hungry today for the 1st time since admission. She continues to have constipation. OBJECTIVE DATA: Vital signs: Remarkable for blood pressure 115/65, pulse 93, respiration 18, temperature of 98.4 degrees with a T-max of 100.1 degrees. Pulmonary: Lungs are clear to auscultation with normal expiratory effort. Cardiovascular Exam: Reveals regular rate and rhythm with no gallops or rubs. Abdominal Exam: Reveals hypoactive bowel sounds with abdomen that is soft but diffusely tender. There is no rebound or guarding. There is mild increase in central body fat. Extremities: Bilaterally are negative for cyanosis, clubbing, or edema. LABORATORY DATA: Reveals a hemoglobin of 10.9 which is an interval decrease since admission of 4 g, hematocrit 33.9 with a white count of 15.12. She has 248,000 platelets. Sodium is 143, potassium 3.6, chloride 109, CO2 19, BUN 6, creatinine 0.6 with a glucose of 64. Calcium is 8.1, total bilirubin 0.78, AST 14, ALT 31, alkaline phosphatase of 100, CRP of 295.57 , total protein 5.8, albumin 2.8, amylase of 514 and a lipase of 175. IMPRESSION: 1. Severe acute pancreatitis. 2. Constipation. 3. Known gallstones consistent with gallstone pancreatitis. 4. Abdominal pain. 5. Nausea with vomiting. 6. Elevated liver function tests, resolved. RECOMMENDATION: 1. Continue current management. 2. The patient has had a significant drop in hemoglobin with no active bleeding. I recommend a CT scan tomorrow to reassess her pancreatitis in light of her increasing CRP and persistent elevation in liver function tests. She may need an EGD to assess her anemia. 3. Her liver function tests are improving and they are monitoring. 4. In light of the improvement in her abdominal pain, I will defer on the ERCP at this time. 5. She is having recurrent hypoglycemia and consideration for PPN versus TPN beginning tomorrow should be considered especially in light of the planned cholecystectomy this week. 6. Continue ice chips as tolerated. If she has no vomiting with ice chips, I would advance her diet to clear liquids tomorrow. 7. Additional recommendations to follow based on clinical course. MTDD
[2016-09-25] MEDS: DILAUDID IV PRN ×7 (00:11→20:36)
[2016-09-25] MEDS: OFIRMEV 1000 MG/ISOTONIC SOLN 100 ML IV SCH ×5 (00:11→23:47)
[2016-09-25] MEDS: PHENERGAN IV PRN ×4 (00:25→20:53)
[2016-09-25] MEDS: SODIUM CHLORIDE 0.9% INJ PRN ×4 (00:25→20:53)
[2016-09-25] MEDS: D5 NS 1,000 ML IV SCH ×4 (00:30→23:46)
[2016-09-25] MEDS: ZOSYN 3.375 GM/NS 50 ML IV SCH ×4 (04:25→20:37)
[2016-09-25 07:10] LABS: MANUAL DIFF NEEDED? NO
[2016-09-25 07:21] LABS: BASO% 0.2 % (0.0-0.8); EOS# 0.05 X1000 (0.0-0.7); EOS% 0.5 % (0.0-10.0); HEMATOCRIT 32.2 % (37.0-47.0); HEMOGLOBIN 10.5 g/dL (12.0-16.0); LYMPH# 0.92 X1000 (1.2-3.4); LYMPH% 8.6 % (20.5-51.1); MCH 28.5 PG (27-31); MCHC 32.6 g/dL (33-37); MCV 87.5 FL (81-99); MONO# 0.67 X1000 (0.11-0.59); MONO% 6.3 % (1.7-9.3); MPV 9.8 FL (7.4-10.4); NEUT% 84.4 % (42.2-75.2); PLT 268 X1000 (130-400); RBC 3.68 XMIL (4.2-5.4)
[2016-09-25 07:53] LABS: AGAP 11; ALBUMIN 2.6 g/dL (3.5-5.0); ALKALINE PHOSPHATASE 107 U/L (32-104); BUN 6 mg/dL (8-22); CALCIUM 7.7 mg/dL (8.8-10.2); CHLORIDE 103 mmol/L (98-107); COSMO 279; GOT 14 U/L (10-30); GPT 25 U/L (10-36); POTASSIUM 3.4 mmol/L (3.5-5.1); SODIUM 140 mmol/L (136-145); TCO2 26 mmol/L (25-35); TOTAL BILIRUBIN 0.69 mg/dL (0.20-1.00); TOTAL PROTEIN 5.9 g/dL (6.3-8.3)
--- NOTE | 2016-09-25 09:13 | Diag Imaging Result Document ---
PROCEDURE NAME: ABDOMEN/PELVIS W/CONTRAST - 09/25/2016 CT OF THE ABDOMEN WITH INTRAVENOUS AND ORAL CONTRAST: COMPARISON: The current study is compared with that of 09/21/2016. FINDINGS: Unlike the previous study, there is considerable atelectasis present in both lower lobes particularly the right. There are large pleural effusions. The spleen and adrenal glands are stable in appearance. The gallbladder is essentially stable in appearance. There is still considerable fluid and inflammatory change in the retroperitoneum surrounding the pancreas. There is an area of lucency in the pancreatic head which was not present previously and may represent some necrosis. This is irregular in shape and measures at least 3.6 cm in transverse dimension. There is actually less phlegmonous edema present in the right anterior perirenal space than on the previous study. There is oral contrast in the distal small bowel and ascending colon. The kidneys are without evidence of hydronephrosis or mass. There is some anasarca in the subcutaneous fat. CT OF THE PELVIS WITH INTRAVENOUS AND ORAL CONTRAST: FINDINGS: There is ascites present in the cul-de-sac which was not previously the case. The regional skeleton is stable in appearance. IMPRESSION: Worsened pleural effusions, basilar atelectasis, anasarca, and ascites since 09/21/2016. Pancreatitis with necrosis.
[2016-09-25] MEDS: PROTONIX IV SCH ×2 (10:11→20:37)
[2016-09-25] MEDS: LOVENOX SUBQ SCH (10:11)
[2016-09-25] MEDS: MOVANTIK PO SCH (11:14)
--- NOTE | 2016-09-25 11:15 | Diag Imaging Result Document ---
PROCEDURE NAME: US ABDOMEN-COMPLETE - 09/25/2016 COMPLETE ABDOMINAL ULTRASOUND: COMPARISON: None available. FINDINGS: There are multiple shadowing stones in the lumen of the gallbladder. The gallbladder wall is mildly thickened, measuring up to 4 mm in thickness. There is trace fluid surrounding the gallbladder. Correlate clinically to exclude cholecystitis. However, the technologist reported a negative sonographic Francisco's sign. The common bile duct is normal in diameter measuring 4 mm. The pancreatic parenchyma is heterogeneous and largely hypoechoic suggesting edema related to known acute pancreatitis. The liver, spleen, aorta, IVC, and kidneys are grossly unremarkable. IMPRESSION: 1. Changes in the pancreatic echotexture compatible with known acute pancreatitis. 2. Cholelithiasis and thickening of the gallbladder wall. Cholecystitis cannot be excluded. 3. The common bile duct is normal in diameter.
--- NOTE | 2016-09-25 13:54 | PROGRESS NOTE ---
DATE: 09/25/2016 SUBJECTIVE: Pain is improved but she still does have quite a significant amount of abdominal pain. Hemodynamically stable. She is NPO. OBJECTIVE: Low-grade tachycardia. All this is improving. T-max was 100.6 degrees, 100.1 degrees yesterday. Otherwise afebrile today. Pulse 87, blood pressure 103/65, oxygen saturation 93% on 2 L.General: She is alert, obviously uncomfortable but in no acute distress. Cardiovascular: Normal rate, regular rhythm. Pulmonary: Shallow breathing, sitting slumped in bed mostly secondary to discomfort but in no respiratory distress. Abdomen: Tender in the right upper quadrant and epigastrium. No peritonitis. Integument: Otherwise warm, dry. The slight jaundiced picture that she had previously has resolved. LABS: White count 10, hematocrit 32, platelets is 268,000. Creatinine 0.6, bilirubin is now 0.69. Transaminases are 14 and 25. Alkaline phosphatase down to 107. Lipase was 175 yesterday and amylase down to 514. ASSESSMENT AND PLAN: This is a 31-year-old female with severe gallstone pancreatitis. She gradually is improving. I suspect a transient passage of stones or bilirubin is now normal. She also has some thickening of gallbladder wall and urinary tract infection. She has been re-CT scanned today. I see no evidence of hemorrhagic conversion to her pancreatitis. She does now have some lucency concerning for an pancreatic necrosis of the pancreatic head. Overall the fluid around the pancreas and the edema is slightly improved. I do not see any other acute intra- abdominal process. She is on antibiotics for both UTI and the possibility of ascending cholangitis and possibility of a cholecystitis. I do not see any evidence of infected pancreatic necrosis on her scan today. PLAN: 1. We will keep NPO given her persistent pain following daily LFTs. She may ultimately need parenteral support. However, I think we can hold off at this point. 2. Given the findings of her scans, the possibility of pancreatic necrosis. I want her pain to be completely gone prior to doing surgery, and with normal or near normal pancreatic function tests. 3. We will continue follow along closely. She is gradually improving and it was quite severe episode of gallstone pancreatitis.
[2016-09-25] MEDS: POTASSIUM CHLORIDE 20 MEQ/SWI 100 ML IV SCH ×2 (14:03→18:44)
--- NOTE | 2016-09-25 17:55 | PROGRESS NOTE ---
DATE: 09/25/2016 SUBJECTIVE: This patient has been complaining today of abdominal pain, she denies nausea, vomiting though. The pain is located in the upper abdomen and probably radiated to the back. We had a CT scan done that shows worsening pleural effusion, bilateral atelectasis, anasarca and ascites and also pancreatitis with necrosis. Apparently there is an irregular shape that measures around 3.6 cm in transverse dimension. OBJECTIVE: Vital Signs: Temperature 98.3 degrees, pulse 87, respiratory rate 18, blood pressure 103/65, O2 saturation 95 on 2 L of nasal cannula. HEENT: Head normocephalic. No trauma. PERRLA. Neck: Supple. No JVD. No masses. Central trachea. Chest: Bilateral rales at the bases. Cardiovascular: RRR. No murmurs. Abdomen: Tender to palpation in the epigastric area and right and left upper quadrant. Positive bowel sounds. Extremities: No edema. No clubbing. No cyanosis. Neurological: The patient is alert and oriented x3. No focal neurological deficits. LABORATORY: WBC 10.7, hemoglobin 10.5, hematocrit 32.2, platelets 268,000. Sodium 140, potassium 3.4, chloride 103, bicarbonate 26, BUN 6, creatinine 0.6, glucose 132, calcium 7.7, albumin 2.6. ASSESSMENT AND PLAN: 1. Acute pancreatitis with necrosis, Surgery Department evaluated this patient. Probably this patient will need to go for surgery, we are going to keep this patient NPO and with pain medication. I will ask for CBC, CMP, amylase and lipase. I will continue with the antibiotics. Compared with admission this patient has less pain and the leukocytosis resolved, the amylase and lipase are trending down as well as the liver function tests. 2. Leukocytosis resolved. Today the WBC is 10.7. 3. Urinary tract infection. Continue with Zosyn. So far cultures are negative. 4. Nausea and vomiting. Will continue with fluid resuscitation, Zofran and also Phenergan in case of nausea p.r.n. 5. Fluid volume depletion resolved. 6. Mild fluid overload. Continue to monitor.
--- NOTE | 2016-09-25 18:31 | PROGRESS NOTE ---
DATE: 09/25/2016 SUBJECTIVE: The patient states that she remains constipated despite receiving Senna S. She notes some increased upper abdominal cramps after the laxative. Her stools have been watery with no solid particulate matter. On ultrasound, she was noted to have changes in the pancreas, echo texture consistent with acute pancreatitis. She had multiple gallstones and thickening of the gallbladder wall. Cholecystitis could not be excluded. She also had a normal common bile duct. On CT scan, there was questionable necrosis in the center of the pancreas, which is an interval change since admission. There was less phlegmonous edema present than on the previous study. However, she has had the interval development of bilateral pleural effusions and ascites. There was evidence of anasarca and bibasilar atelectasis, which is new since admission on 09/21/2016. OBJECTIVE DATA: Vital Signs: On exam, her blood pressure is 103/65, pulse 87, respiration 18, temperature of 98.3 degrees. Her abdomen is not distended. It is soft. LABORATORY DATA: Remarkable for hemoglobin of 10.5, with hematocrit of 32.2, and a white count of 10.71. She has 268,000 platelets. Sodium 140, potassium 3.4, chloride 103, CO2 26, BUN 6, creatinine 0.6, with a glucose of 132. Calcium is 7.7, total bilirubin 0.69, AST 14, ALT 25, alkaline phosphatase 107. Total protein 5.9, albumin 2.6. Her CRP continues to rise and is up to 299.02. IMPRESSION: 1. Severe acute pancreatitis. 2. Constipation. 3. Gallstones with gallstone pancreatitis. 4. Probable cholecystitis. 5. Nausea with vomiting. 6. Elevated liver function tests, resolved. 7. Hypoglycemia. RECOMMENDATIONS: 1. Continue conservative management. 2. I will add MiraLAX 17 g one p.o. b.i.d. and Dulcolax suppositories at bedtime as needed for constipation. Our goal is to relieve the fecal impaction that is developing in the transverse colon and the right colon on the scans. 3. Continue Protonix, as you are doing. 4. She continues to have hypoglycemia. If she is unable to advance her diet in the next 48 hours, I would strongly consider parenteral nutrition. It is reasonable to continue NPO status at this time. 5. Continue D5 as you are doing, pending further evaluation and management by surgery. 6. Continue Movantik for the constipation. 7. Additional recommendations to follow based on her clinical course.
[2016-09-25] MEDS: MIRALAX PO SCH (20:37)
[2016-09-25] MEDS: SODIUM CHLORIDE 0.9% INJ SCH (20:37)
[2016-09-25] MEDS: DULCOLAX PR PRN (23:52)
[2016-09-26] MEDS: SODIUM CHLORIDE 0.9% INJ PRN (02:22)
[2016-09-26] MEDS: ZOSYN 3.375 GM/NS 50 ML IV SCH ×4 (02:22→20:15)
[2016-09-26] MEDS: PHENERGAN IV PRN ×2 (02:22→20:20)
[2016-09-26] MEDS: ZOFRAN IV PRN (04:24)
[2016-09-26] MEDS: DILAUDID IV PRN ×4 (04:24→20:15)
[2016-09-26] MEDS: D5 NS 1,000 ML IV SCH ×4 (06:29→20:28)
[2016-09-26] MEDS: OFIRMEV 1000 MG/ISOTONIC SOLN 100 ML IV SCH ×3 (06:29→16:40)
[2016-09-26] MEDS: MOVANTIK PO SCH (06:29)
[2016-09-26 06:52] LABS: MANUAL DIFF NEEDED? NO
[2016-09-26 07:22] LABS: BASO% 0.2 % (0.0-0.8); EOS# 0.16 X1000 (0.0-0.7); EOS% 1.6 % (0.0-10.0); HEMATOCRIT 29.4 % (37.0-47.0); HEMOGLOBIN 9.6 g/dL (12.0-16.0); IMM GRAN# 0.03 X1000 (0.0-0.04); IMM GRAN% 0.3 % (0.0-0.5); LYMPH# 1.05 X1000 (1.2-3.4); LYMPH% 10.5 % (20.5-51.1); MCH 27.9 PG (27-31); MCHC 32.7 g/dL (33-37); MCV 85.5 FL (81-99); MONO# 0.61 X1000 (0.11-0.59); MONO% 6.1 % (1.7-9.3); MPV 9.9 FL (7.4-10.4); NEUT% 81.3 % (42.2-75.2); PLT 299 X1000 (130-400); RBC 3.44 XMIL (4.2-5.4)
[2016-09-26 07:25] LABS: AGAP 11; ALBUMIN 2.5 g/dL (3.5-5.0); ALKALINE PHOSPHATASE 97 U/L (32-104); AMYLASE 133 U/L (20-200); BUN 3 mg/dL (8-22); CALCIUM 7.3 mg/dL (8.8-10.2); CHLORIDE 107 mmol/L (98-107); COSMO 281; GOT 12 U/L (10-30); GPT 20 U/L (10-36); LIPASE 36 U/L (13-60); MAGNESIUM 1.3 mg/dL (1.5-2.7); POTASSIUM 2.8 mmol/L (3.5-5.1); SODIUM 142 mmol/L (136-145); TCO2 24 mmol/L (25-35); TOTAL BILIRUBIN 0.46 mg/dL (0.20-1.00); TOTAL PROTEIN 5.3 g/dL (6.3-8.3)
[2016-09-26] MEDS: PROTONIX IV SCH ×2 (09:18→20:15)
[2016-09-26] MEDS: SODIUM CHLORIDE 0.9% INJ SCH ×2 (09:18→20:15)
[2016-09-26] MEDS: MIRALAX PO SCH ×2 (09:18→20:16)
[2016-09-26] MEDS: LOVENOX SUBQ SCH (09:19)
--- NOTE | 2016-09-26 11:18 | PROGRESS NOTE ---
DATE: 09/26/2016 SUBJECTIVE: Some colicky pain but overall is improving. Still some nausea and occasional emesis. Feels as though she needs to have a bowel movement, passing gas. OBJECTIVE: Vital Signs: No fevers. Pulse 77, blood pressure 108/51. General: She is alert. No jaundice. Abdomen: Soft. There is mild tenderness in the epigastrium but no peritonitis, less distended. Laboratory Data: I have reviewed her labs. White count remains normal. Hematocrit stable at 29. Bilirubin is now normal at 0.46. Transaminases were normal. Alkaline phosphatase is now normal. Amylase and lipase were also normal at 133 and 36. ASSESSMENT/PLAN: A 31-year-old female with severe gallstone pancreatitis, some necrosis of the pancreatic head. Biochemically, her numbers are improving. However, she does have some persistent pancreatitis pain and symptoms. We will monitor her for the next 48 hours and tentatively plan for laparoscopic cholecystectomy with a cholangiogram on afternoon, subject to change if her condition worsens. As her pain resolves, I would begin clear liquids but I think that is not appropriate at this point. As she reaches the 7 day chastity, she may need parenteral support. Discussed the plan in detail with her family. They understand. We will plan for bowel stimulation today with Dulcolax suppository.
--- NOTE | 2016-09-26 15:43 | PROGRESS NOTE ---
DATE: 09/26/2016 DATE OF ROUNDS: 09/26/2016. SUBJECTIVE: The patient states that she has had a marked decrease in abdominal pain over night. Her pain is improved with defecation. However, she had nausea with vomiting while defecating. Her stool continues to be brown liquid stools with only a few pieces of solid debris. However, her abdominal distention has improved considerably. OBJECTIVE: On exam, her blood pressure is 100/51, pulse 71, respiration 18, temperature of 99.1 degrees. Her abdomen is soft with a decrease in her epigastric tenderness. It is soft and nondistended. OBJECTIVE DATA: Remarkable for hemoglobin of 9.6 with hematocrit of 20. She describes new pyrosis with left upper quadrant pain and epigastric burning sensation particularly when she tries to eat. On exam, her vitals are blood pressure 100/51, pulse is 77, respiration 18, temperature of 99.1 degrees. Her abdominal exam reveals a soft abdomen that is slightly protuberant. She has both epigastric and left upper quadrant pain. The left upper quadrant pain is new since her last exam. Objective data is remarkable for hemoglobin of 9.6 with hematocrit of 29.4, and a white count of 9.96. She has 299,000 platelets. Sodium is 142, potassium 2.8, chloride 107, CO2 of 24. BUN 3, creatinine 0.5 with a glucose of 126. Her calcium is 7.3, phosphorus 1.5, magnesium 1.3, total bilirubin 0.46, AST 12, ALT 20, alkaline phosphatase 97, total protein 5.3 and albumin 2.5. Her CRP is 185.42. Her amylase is 133 with a lipase of 36. IMPRESSION: 1. Severe acute pancreatitis. 2. New left upper quadrant pain. 3. Pyrosis. 4. Progressive anemia. 5. Constipation. 6. Nausea with vomiting. 7. Cholecystitis. RECOMMENDATION: 1. Continue conservative management. 2. Continue MiraLAX 1 g p.o. b.i.d. 3. Continue Dulcolax suppositories at night if she has no defecation. 4. She has progressive anemia. If her abdominal pain continues, she will need an EGD to rule out peptic ulcer disease. 5. To help with the pyrosis, I will begin Carafate suspension 1 g p.o. 4 times a day. 6. We anticipate that she will have surgery this week for removal of the gallstones. If she remains hemodynamically stable, we will plan to perform the EGD as an outpatient. If her hemoglobin continues to drop, she may require an EGD this week. 7. Consider reducing the dose of D5 as she has laboratory changes consistent with refeeding syndrome. 8. Additional recommendations to follow based on her clinical course.
[2016-09-26] MEDS: CARAFATE LIQUID PO SCH (16:40)
--- NOTE | 2016-09-26 18:35 | PROGRESS NOTE ---
DATE: 09/26/2016 The patient is still having abdominal pain more so on the left upper quadrant. Mild nausea but no vomiting. No fever. No chills.Vital Signs: Blood pressure 121/73, pulse of 76, respiration 18, temperature 98.8 degrees, sat of 96% on room air. General appearance: Well-developed well- nourished white female in mild distress. HEENT: Anicteric. Clear conjunctivae. Neck: Supple. No JVD. No bruits. Cardiovascular: S1, S2. Normal rate and rhythm. No murmur, rubs, or gallops. Pulmonary: Clear to auscultation bilaterally. GI: Tender to palpations diffusely. Extremities: No clubbing, cyanosis, or edema. LABORATORY: Her white count today 9.96, hemoglobin 9.6, hematocrit of 29.4, platelets 299,000. Chemistry: Sodium 142, potassium 2.8, chloride 107. Bicarb 24, BUN 11, creatinine 0.5. Glucose 126. C-reactive protein is 155. ASSESSMENT AND PLAN: This is a 31-year-old, white female with no significant past medical history presented with acute pancreatitis with necrosis. 1. Acute pancreatitis. Continue supportive care. General Surgery is following. We will continue pain control. The patient is on Zosyn. Continue Protonix. Keep the patient NPO. General Surgery is planning to do surgery on . Will probably place a PICC line in and start the patient on TPN tomorrow. Even after surgery it is going to be several days before she is going to be able to eat again. 2. Deep vein thrombosis prophylaxis. Put the patient on Lovenox.
[2016-09-26 18:52] LABS: HEMATOCRIT 33.2 % (37.0-47.0); MCH 28.5 PG (27-31); MCHC 33.1 g/dL (33-37); MPV 9.4 FL (7.4-10.4); RBC 3.86 XMIL (4.2-5.4)
[2016-09-27] MEDS: CARAFATE LIQUID PO SCH ×5 (01:17→20:23)
[2016-09-27] MEDS: OFIRMEV 1000 MG/ISOTONIC SOLN 100 ML IV SCH ×4 (01:39→22:10)
[2016-09-27] MEDS: ZOSYN 3.375 GM/NS 50 ML IV SCH ×4 (01:40→20:23)
[2016-09-27] MEDS: DILAUDID IV PRN ×5 (01:40→20:24)
[2016-09-27 03:15] LABS: AGAP 9; BUN 1 mg/dL (8-22); CALCIUM 7.6 mg/dL (8.8-10.2); CHLORIDE 105 mmol/L (98-107); COSMO 276; MAGNESIUM 1.2 mg/dL (1.5-2.7); POTASSIUM 2.5 mmol/L (3.5-5.1); SODIUM 140 mmol/L (136-145); TCO2 26 mmol/L (25-35)
[2016-09-27] MEDS ORDERED: MAGNESIUM SULFATE 1 GM/D5W 100 ML IV ONE (03:56)
[2016-09-27] MEDS ORDERED: POTASSIUM CHLORIDE 60 MEQ in NS 500 ML IV ONE (03:56)
[2016-09-27] MEDS: D5 NS 1,000 ML IV SCH ×4 (04:48→22:55)
[2016-09-27 07:07] LABS: AGAP 10; ALBUMIN 2.3 g/dL (3.5-5.0); ALKALINE PHOSPHATASE 98 U/L (32-104); BUN 1 mg/dL (8-22); CALCIUM 7.6 mg/dL (8.8-10.2); CHLORIDE 108 mmol/L (98-107); COSMO 281; GOT 8 U/L (10-30); GPT 15 U/L (10-36); POTASSIUM 2.6 mmol/L (3.5-5.1); SODIUM 143 mmol/L (136-145); TCO2 25 mmol/L (25-35); TOTAL BILIRUBIN 0.38 mg/dL (0.20-1.00); TOTAL PROTEIN 5.2 g/dL (6.3-8.3)
[2016-09-27] MEDS: ZOFRAN IV PRN ×2 (08:47→14:40)
[2016-09-27] MEDS: MIRALAX PO SCH ×2 (08:47→12:20)
[2016-09-27] MEDS: SODIUM CHLORIDE 0.9% INJ SCH ×2 (08:47→20:24)
[2016-09-27] MEDS: LOVENOX SUBQ SCH (08:48)
[2016-09-27] MEDS: PROTONIX IV SCH ×2 (08:48→20:23)
[2016-09-27] MEDS: MOVANTIK PO SCH (09:14)
--- NOTE | 2016-09-27 11:47 | PROGRESS NOTE ---
DATE: 09/27/2016 SUBJECTIVE: The pain is better. She just feels constipated, that she has not had a bowel movement. Has had some stools with her bowel regimen overnight, but her previous severe pain has resolved. OBJECTIVE: Vitals have been reviewed. Temperature is 98.7 this morning. No fevers overnight. Pulse 83, blood pressure 117/77, oxygen saturation 94% on room air. General: She is alert, in no acute distress. HEENT: There is no scleral icterus. Cardiovascular: Normal rate, regular rhythm. Abdomen: Soft, nontender, nondistended. Integumentary: Warm and dry. I do not see any jaundice. LABORATORY DATA: I reviewed her labs. White count has been normal. LFTs are also normalized. CRP is down trending. Amylase and lipase were normal yesterday. Creatinine is normal at 0.4. She does have hypokalemia which is being treated by the medicine service, and hypomagnesemia. PLAN: This is a 31-year-old female with gallstone pancreatitis with some necrosis. Pancreatic symptoms are improving. She has been n.p.o. for quite some time. Plans for PICC line and TPN are being made by the medicine service, and I agree with this. We tentatively have her on the schedule for tomorrow for laparoscopic cholecystectomy with cholangiogram. However, if she continues to have pain or any issues will delay this further, ensuring that her pancreatitis has resolved. Have already scheduled the patient. She understands if we do delay surgery and her symptoms remain unresolved, it would be not unreasonable to start her on clear liquids.
[2016-09-27 13:43] LABS: AGAP 11; ALBUMIN 2.5 g/dL (3.5-5.0); BUN 1 mg/dL (8-22); CALCIUM 7.7 mg/dL (8.8-10.2); CHLORIDE 107 mmol/L (98-107); COSMO 281; MAGNESIUM 1.6 mg/dL (1.5-2.7); POTASSIUM 2.6 mmol/L (3.5-5.1); SODIUM 143 mmol/L (136-145); TCO2 25 mmol/L (25-35)
[2016-09-27 14:24] LABS: INR 2.35
[2016-09-27] MEDS ORDERED: NS 0 ML ONE (14:47)
[2016-09-27 15:18] LABS: ALBUMIN 2.8 g/dL (3.5-5.0); DIRECT BILIRUBIN 0.2 mg/dL (0.00-0.20); TOTAL BILIRUBIN 0.43 mg/dL (0.20-1.00); TOTAL PROTEIN 5.3 g/dL (6.3-8.3)
--- NOTE | 2016-09-27 15:39 | PROGRESS NOTE ---
DATE: 09/27/2016 SUBJECTIVE: The patient is feeling better today. Still have soreness in her left upper quadrant. No fever. No chills. No nausea, vomiting, or diarrhea. OBJECTIVE: Vital Signs: Blood pressure 117/70, pulse of 83, respiration 18, temperature 98.7 degrees, saturation of 94% on room air. General Appearance: Well-developed, well-nourished white female in no acute distress. HEENT: Anicteric sclerae. Clear conjunctivae. Neck: Supple. No JVD. No bruit. Cardiovascular: S1, S2. Normal rate and rhythm. No murmur, rubs, or gallops. Pulmonary: Clear to auscultation bilaterally. GI: Tender to palpation in the right upper quadrant. LABORATORY: White count of 10.09, hemoglobin 11, hematocrit of 33.2, platelets of 321,000. Chemistry: Sodium 143, potassium 2.6, we will replete her potassium and we will give her magnesium today. Magnesium 1.6, chloride 107, bicarb 25, BUN 1, creatinine 0.5. Her PT/INR is 26 and 2.35. We will recheck. ASSESSMENT AND PLAN: This is a 31-year-old white female admitted to the hospital for acute pancreatitis. 1. Acute pancreatitis, necrotic type. Surgery planning to remove her gallbladder. The patient is on Zosyn. We will continue to We will keep the patient nothing per oral. We will recheck her PT/INR. It was normal 3 days ago, but today it is abnormal, make sure it is not a lab error. If it is elevated we will give her vitamin K tonight and then will put a PICC line and start her on total parenteral nutrition. 2. Deep venous thrombosis prophylaxis. We will hold her Lovenox for now. CODE STATUS: Patient is a full code.
[2016-09-28] MEDS: DILAUDID IV PRN ×6 (00:38→23:51)
[2016-09-28] MEDS: ZOSYN 3.375 GM/NS 50 ML IV SCH ×4 (01:20→22:16)
[2016-09-28] MEDS: OFIRMEV 1000 MG/ISOTONIC SOLN 100 ML IV SCH ×3 (01:20→13:00)
[2016-09-28] MEDS: CARAFATE LIQUID PO SCH ×4 (01:20→22:15)
[2016-09-28] MEDS: MIRALAX PO SCH ×3 (03:20→22:32)
[2016-09-28] MEDS: MOVANTIK PO SCH (06:25)
[2016-09-28 06:56] LABS: MANUAL DIFF NEEDED? NO
[2016-09-28 07:02] LABS: BASO% 0.2 % (0.0-0.8); EOS# 0.37 X1000 (0.0-0.7); HEMATOCRIT 28.7 % (37.0-47.0); HEMOGLOBIN 9.4 g/dL (12.0-16.0); IMM GRAN# 0.04 X1000 (0.0-0.04); IMM GRAN% 0.4 % (0.0-0.5); LYMPH# 1.98 X1000 (1.2-3.4); LYMPH% 21.5 % (20.5-51.1); MCHC 32.8 g/dL (33-37); MCV 85.4 FL (81-99); MONO# 0.76 X1000 (0.11-0.59); MONO% 8.3 % (1.7-9.3); MPV 9.3 FL (7.4-10.4); NEUT% 65.6 % (42.2-75.2); PLT 361 X1000 (130-400); RBC 3.36 XMIL (4.2-5.4)
[2016-09-28 07:43] LABS: AGAP 10; ALBUMIN 2.4 g/dL (3.5-5.0); ALKALINE PHOSPHATASE 101 U/L (32-104); BUN 1 mg/dL (8-22); CALCIUM 7.6 mg/dL (8.8-10.2); CHLORIDE 107 mmol/L (98-107); COSMO 281; GOT 14 U/L (10-30); GPT 15 U/L (10-36); POTASSIUM 2.6 mmol/L (3.5-5.1); SODIUM 143 mmol/L (136-145); TCO2 26 mmol/L (25-35); TOTAL BILIRUBIN 0.34 mg/dL (0.20-1.00); TOTAL PROTEIN 5.2 g/dL (6.3-8.3)
[2016-09-28] MEDS: D5 NS 1,000 ML IV SCH ×2 (07:56→23:12)
[2016-09-28] MEDS: PROTONIX IV SCH ×2 (08:27→22:15)
[2016-09-28 10:18] LABS: INR 2.41; PROTIME 26.8 Seconds (9.2-11.7)
[2016-09-28] MEDS ORDERED: VITAMIN K SUBQ ONE (10:34)
[2016-09-28] MEDS: PHENERGAN IV PRN ×2 (11:30→19:41)
[2016-09-28] MEDS ORDERED: POTASSIUM CHLORIDE 80 MEQ in NS 500 ML IV ONE (11:30)
[2016-09-28] MEDS ORDERED: MAGNESIUM SULFATE 2 GM/S.W.I. 50 ML IV ONE (11:48)
--- NOTE | 2016-09-28 13:21 | PROGRESS NOTE ---
DATE: 09/28/2016 SUBJECTIVE: Pain is better. Some colicky pains felt to be related to bowel movements. Improved nausea. Vitals: She had no fevers, no tachycardia. Blood pressure 117/67. General: She has no jaundice. Cardiovascular: Normal rate. Abdomen: Is soft, nontender, nondistended. Integument: Warm, dry. No lower extremity edema. REVIEW OF LABS: Her labs white count is normal at 9, hematocrit is 28, platelets are 361,000. Her INR is elevated 2.41 for unclear reasons. Creatinine 0.4. Bilirubin is normal at 0.34. Transaminases and alkaline phosphatase are normal. ASSESSMENT AND PLAN: This is a 31-year-old female with gallstone pancreatitis. Pancreatitis seems to be resolved however she does have significant electrolyte derangements this morning and coagulopathy of unclear etiology. If we can correct this, we will plan on cholecystectomy in the next day or 2. We discussed extensively risks, benefits, alternatives, including increased risk of bile duct in the setting of pancreatitis, infectious and wound issues. She understands this however in order to prevent another attack we will plan to do her cholecystectomy during this admission. We will continue follow along. We need to work up the reason for her coagulopathy and aggressively replete her electrolytes. She may not be ready for surgery tomorrow. I think plans for PICC and TPN are in order and I agree with this.
--- NOTE | 2016-09-28 14:14 | PROGRESS NOTE ---
DATE: 09/28/2016 SUBJECTIVE: The patient is a little upset because her surgery was canceled today due to her elevated INR and abnormal electrolytes. OBJECTIVE: Her blood pressure 117/67, pulse of 68, respiration 19, temperature 98.3 degrees, saturation 97% on room air.General Appearance: Thin white female, in no acute distress. HEENT: Anicteric. Clear conjunctivae. Neck: Supple. No JVD. No bruit. Cardiovascular: S1, S2. Normal rate and rhythm. No murmur, rubs, or gallops. Pulmonary: Clear to auscultation bilaterally. GI: Soft, nontender, nondistended. Normoactive bowel sounds. Musculoskeletal: No clubbing, cyanosis, or edema. Abdomen: She has mild abdominal pain on the left upper quadrant. LABORATORY: INR today is chemistry sodium is 143, potassium is 2.6, BUN 1, creatinine 0.4, glucose 93, white count 9.2, hemoglobin 9.4, hematocrit of 28.7, platelets of 361,000. ASSESSMENT AND PLAN: 1. This 31-year-old admitted to the hospital for acute pancreatitis. 2. Acute necrotic pancreatitis. She is improving. Discussed with Dr. Lehman about INR. Surgery is on hold. We gave the patient vitamin K today. We will repeat all ultrasound for liver, recheck her liver function and her synthetic function tomorrow. 3. We will start the patient on the ice chips today and probably start on a clear liquid. Surgery may be on hold until next week, this will depend on her INR. 4. Electrolyte abnormalities. 5. Hypokalemia. We will continue to replete her potassium today and magnesium today. Repeat lab work in the morning. CODE STATUS: Patient is a full code.
[2016-09-28] MEDS: ZOFRAN IV PRN (14:53)
--- NOTE | 2016-09-28 17:57 | Diag Imaging Result Document ---
PROCEDURE NAME: US ABDOMEN-COMPLETE - 09/28/2016 ULTRASOUND ABDOMEN COMPLETE: COMPARISON: Numerous prior exams from this month alone. FINDINGS: The common bile duct is somewhat dilated measuring about 9 mm similar to prior. There are gallstones in the gallbladder. There is a left pleural effusion. No significant or drainable fluid collections. The pancreas echotexture is heterogeneous, particularly at the pancreatic head suggesting pancreatitis. There are numerous gallstones in the gallbladder. The liver, spleen, and both kidneys are normal. IMPRESSION: 1. Gallstones in the gallbladder. 2. Pancreatitis of the pancreatic head. 3. Left pleural effusion. 4. Mildly dilated common bile duct measuring 9 mm. Nonspecific.
[2016-09-28] MEDS: SODIUM CHLORIDE 0.9% INJ SCH (22:15)
[2016-09-29] MEDS: OFIRMEV 1000 MG/ISOTONIC SOLN 100 ML IV SCH ×4 (01:07→18:10)
[2016-09-29] MEDS: ZOSYN 3.375 GM/NS 50 ML IV SCH ×2 (02:17→09:02)
[2016-09-29] MEDS: CARAFATE LIQUID PO SCH ×4 (02:18→20:57)
[2016-09-29 04:34] LABS: MANUAL DIFF NEEDED? NO
[2016-09-29 04:37] LABS: BASO% 0.2 % (0.0-0.8); EOS# 0.38 X1000 (0.0-0.7); EOS% 3.6 % (0.0-10.0); HEMATOCRIT 30.7 % (37.0-47.0); HEMOGLOBIN 10.2 g/dL (12.0-16.0); IMM GRAN# 0.07 X1000 (0.0-0.04); IMM GRAN% 0.7 % (0.0-0.5); LYMPH# 2.21 X1000 (1.2-3.4); LYMPH% 20.9 % (20.5-51.1); MCH 28.2 PG (27-31); MCHC 33.2 g/dL (33-37); MCV 84.8 FL (81-99); MONO# 0.83 X1000 (0.11-0.59); MONO% 7.9 % (1.7-9.3); MPV 9.2 FL (7.4-10.4); NEUT% 66.7 % (42.2-75.2); PLT 453 X1000 (130-400); RBC 3.62 XMIL (4.2-5.4)
[2016-09-29 04:51] LABS: INR 1.13; PTT 36.1 Seconds (22.0-36.0)
[2016-09-29 04:58] LABS: AGAP 11; ALBUMIN 2.6 g/dL (3.5-5.0); ALKALINE PHOSPHATASE 113 U/L (32-104); BUN 2 mg/dL (8-22); CALCIUM 7.9 mg/dL (8.8-10.2); CHLORIDE 107 mmol/L (98-107); COSMO 281; GOT 16 U/L (10-30); GPT 15 U/L (10-36); POTASSIUM 3.3 mmol/L (3.5-5.1); SODIUM 143 mmol/L (136-145); TCO2 25 mmol/L (25-35); TOTAL BILIRUBIN 0.47 mg/dL (0.20-1.00); TOTAL PROTEIN 5.5 g/dL (6.3-8.3)
[2016-09-29] MEDS: MOVANTIK PO SCH ×2 (06:34→06:41)
[2016-09-29] MEDS: SODIUM CHLORIDE 0.9% INJ SCH ×2 (09:01→20:57)
[2016-09-29] MEDS: D5 NS 1,000 ML IV SCH ×2 (09:02→16:16)
[2016-09-29] MEDS: PROTONIX IV SCH ×2 (09:02→20:57)
[2016-09-29] MEDS: POTASSIUM CHLORIDE 20 MEQ/SWI 100 ML IV SCH ×2 (09:02→11:29)
[2016-09-29] MEDS: DILAUDID IV PRN ×3 (09:09→22:01)
--- NOTE | 2016-09-29 09:18 | PROGRESS NOTE ---
DATE: 09/29/2016 SUBJECTIVE: The patient is a little frustrated and would like her surgery to be done as soon as possible. I notified her regarding the reasons it has been delayed due to her abnormalities with her labs. OBJECTIVE: Vital Signs: Temperature 97.9 degrees, pulse 81, respirations 20, blood pressure 127/77, O2 saturation 96% on room air. HEENT: Normocephalic, atraumatic. Mucous membranes moist. Neck: Supple. No JVD. Chest: Bilateral breath sounds clear. Respirations unlabored. No accessory muscle use noted. Cardiovascular: Normal S1, S2. Abdomen: Abdomen is soft, slightly tender. Epigastric and right upper abdomen. Positive bowel sounds. Extremities: No evidence of clubbing, cyanosis, or edema. No calf tenderness. DIAGNOSTIC DATA: CBC: Hemoglobin and hematocrit 10.2 and 30.7, otherwise unremarkable. PT 12, INR 1.13, PTT 36.1, D-dimer 3.37. BMP sodium 143, potassium 3.3 chloride 107, CO2 25, BUN 2, creatinine 0.5, glucose 88, calcium 7.9, alkaline phosphatase 113. ALT and AST are normal. Abdominal ultrasound done yesterday shows gallstones in the gallbladder, pancreatitis of the pancreatic head. Left pleural effusion and mildly dilated common bile duct. ASSESSMENT AND PLAN: 1. Acute necrotic pancreatitis. She is improving. Awaiting surgery per Dr. Lehman has been delayed due to elevated INR, and is improved this morning after she was given vitamin K. 2. Gallstones seen on ultrasound as well, as she is likely contributing to her pancreatitis. 3. Nausea and vomiting. Resolved. We will continue antiemetics p.r.n. 4. Hypokalemia. This has been supplemented this morning and it does seem to be improved, however, from previous. 5. Further orders per physician evaluation. Dictated by MARTA Bradley for Percy Raza MD
[2016-09-29] MEDS: MIRALAX PO SCH ×2 (11:30→20:57)
[2016-09-29] MEDS ORDERED: LR 1,000 ML ONE (12:47)
[2016-09-29] MEDS ORDERED: SODIUM CHLORIDE 0.9% ONE (12:47)
[2016-09-29] MEDS ORDERED: MARCAINE 0.25% PF/EPI 1:200,000 ONE (12:47)
--- NOTE | 2016-09-29 13:36 | PROGRESS NOTE ---
DATE: 09/29/2016 SUBJECTIVE: Feels well. No more pain. She is ambulating. No nausea. OBJECTIVE: She is afebrile. No tachycardia. Blood pressure 133/84, O2 saturation 98% on room air.General: She is alert, in no acute distress. HEENT: No scleral icterus or jaundice. Cardiovascular: Normal rate, regular rhythm. Abdomen: Soft, nontender, nondistended. White count is 10, hematocrit is 30, which has been stable, platelets 453,000. INR is 1.13. Creatinine 0.5. Glucose is normal at 88. Bilirubin is normal at 0.47. Transaminases normal at 16 and 15. Alkaline phosphatase is mildly elevated at 113. ASSESSMENT AND PLAN: A 31-year-old female with severe gallstone pancreatitis. Pancreatitis has resolved, really has been symptomatic for a couple days. Her coagulopathy is improved, unclear of the etiology of this and her potassium is now 3.3, and it is improving with IV replacement. Risks, benefits and alternatives were extensively discussed over the last several days with the patient. She consents to a laparoscopic cholecystectomy with cholangiogram. She understands the possibility of ERCP. She also understands the possibility or the likelihood although unlikely that common bile duct injury is higher in the setting of previous pancreatitis and we have ensured that this is both clinically and biochemically resolved prior to going to surgery. She also understands the risk of bile leak following the surgery. We will plan to stop her antibiotics and advance her diet and home over the next several days. Dr. Vasquez is cement or concrete finishing supervisor this weekend and will see her for me. If a drain is left she can see me early next week for drain removal if she were to go home. Otherwise she can see me in the next 1-2 weeks for followup. I have given her my card and she knows my contact information. Plan to go to the operating room today. cc: Ashlyn Lehman MD
--- NOTE | 2016-09-29 15:36 | Diag Imaging Result Document ---
PROCEDURE NAME: OPERATIVE CHOLANGIOGRAM - 09/29/2016 INTRAOPERATIVE CHOLANGIOGRAM, 2 VIEWS: FINDINGS: There is no evidence of retained stones or obstruction. IMPRESSION: No evidence of retained stones.
[2016-09-29] MEDS ORDERED: MORPHINE ONE (15:37)
[2016-09-29] MEDS ORDERED: DIPRIVAN 1% ONE (15:37)
[2016-09-29] MEDS ORDERED: FENTANYL ONE ×2 (15:37→15:47)
[2016-09-29] MEDS: DILAUDID ONE ×3 (15:44→16:17)
[2016-09-29] MEDS ORDERED: QUELICIN (DOSE) ONE (15:53)
[2016-09-29] MEDS ORDERED: LR 2,000 ML ONE (15:53)
[2016-09-29] MEDS ORDERED: ZOFRAN ONE (15:53)
[2016-09-29] MEDS ORDERED: NEOSTIGMINE ONE (15:53)
[2016-09-29] MEDS ORDERED: ZEMURON ONE (15:53)
[2016-09-29] MEDS ORDERED: TORADOL ONE (15:53)
[2016-09-29] MEDS ORDERED: ROBINUL ONE (15:53)
--- NOTE | 2016-09-29 15:55 | OPERATIVE NOTE ---
PROCEDURE DATE: 09/29/2016 PREOPERATIVE DIAGNOSIS: Gallstone pancreatitis. POSTOPERATIVE DIAGNOSIS: Gallstone pancreatitis. PROCEDURE PERFORMED: Laparoscopic cholecystectomy with intraoperative cholangiogram. INTERNET CONSULTANT: Eduardo Medina MD. Dr. Medina was present for the entirety of the case. He assisted with retraction, identification of distorted anatomy and performing the cholangiogram. ESTIMATED BLOOD LOSS: 5 mL. SPECIMENS: Gallbladder. OPERATIVE INDICATION: This is a 31-year-old female, admitted approximately a week ago with severe gallstone pancreatitis. 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 OPERATIVE FINDINGS: 1. There was an inflamed gallbladder that was dilated with stones within, densely adherent to the common bile duct, but was safely . 2. Interpretation of intraoperative cholangiogram: There was a very short cystic duct. There was a nondilated common bile duct with rapid flow of contrast into the duodenum. No filling defects. Some physiologic stricturing at the head of the pancreas and bilateral 2nd and 3rd degree biliary radicles were visualized and normal. Pancreatic duct not visualized. OPERATIVE NOTE: Risks, benefits, alternatives discussed with the patient, she consented to the procedure. She was seen in preoperative area and surgery to be performed was confirmed. She was receiving scheduled antibiotics. Procedure was confirmed. She was taken to the operating room and placed supine. General anesthesia induced without complication. The abdomen is prepped with chlorhexidine solution, draped in usual fashion. After time-out was performed, periumbilical block was made and a curvilinear infraumbilical incision was made. The fascia was elevated and entered along midline sharply in a controlled fashion. The abdomen was entered and a 12 mm Puneet trocar was placed in an open fashion with care to protect the underlying structures, insufflated to 15 mmHg. Inspected the abdomen. There was no evidence of underlying injury. We then placed 3 trocars, 1 at the epigastrium, 1 in the midclavicular line off the costal margin , 1 more lateral, all after infiltration of the peritoneum with local anesthetic. We grasped the gallbladder and retracted it cephalad. I placed an orogastric tube because the stomach was quite distended. Visualization did require a 45 degree scope. We exchanged this and this significantly improved the visualization. This dissection was started laterally and progressed medially , stripping the peritoneum overlying the infundibulum There was a cystic artery branch identified anteriorly. This was dissected circumferentially. We created the critical view prior to clipping this and were able establish this. The cystic duct was very foreshortened. We could visualize the common bile duct in the junction of the cystic duct/common bile duct. We continued our dissection towards the gallbladder and were able to separate this creating the length of the cystic duct and there was an adequate length of approximately 1.5 cm to 2 cm obtained. The common bile duct was very close throughout this, but was identified and protected throughout. We doubly clipped the cystic artery, divided this to facilitate exposure. . We clipped the cystic duct proximally, made a ductotomy, performed a cholangiogram which was quite difficult given the short distorted nature of the cystic duct, but we were able after several tries to perform this with above findings. After we were satisfied, we triply clipped the cystic duct, again protecting the common bile duct and were able to do this successfully. Divided the cystic duct. The stones were milked out of the cystic duct prior to clipping and there was no evidence of retained stone. These were small and were crushed and removed. After triply clipping, dividing the cystic duct, we removed the gallbladder from the gallbladder fossa with care to protect the common bile duct and portal structures. Using electrocautery to obtain hemostasis as we went, there is no rupture or spillage of bile or stones. Placed the gallbladder in the EndoCatch bag, irrigated and suctioned until clear. We again inspected the cystic duct stump. This was intact with good closure and no bleeding noted. Given the inflammation, we left a Santosh drain in the gallbladder fossa, secured it with 2-0 nylon suture. We removed the trocars under direct visualization. Desufflated the abdomen, brought the gallbladder out through the umbilical incision. We closed the fascia with interrupted 0 Vicryl sutures, skin with 4-0 Monocryl. Dermabond was applied. She tolerated this well. No identified complication. Transferred to PACU in good condition. I spoke with the family. cc: Ashlyn Lehman MD [facility]
[2016-09-29] MEDS ORDERED: D5 NS 1,000 ML ONE (16:11)
[2016-09-30] MEDS: OFIRMEV 1000 MG/ISOTONIC SOLN 100 ML IV SCH ×3 (00:40→11:47)
[2016-09-30] MEDS: DILAUDID IV PRN ×6 (01:15→21:00)
[2016-09-30] MEDS: CARAFATE LIQUID PO SCH ×4 (01:15→23:08)
[2016-09-30] MEDS: D5 NS 1,000 ML IV SCH ×3 (04:47→17:18)
[2016-09-30] MEDS: MOVANTIK PO SCH (06:00)
[2016-09-30] MEDS: MIRALAX PO SCH ×2 (09:04→23:08)
[2016-09-30] MEDS: PROTONIX IV SCH ×2 (09:04→23:08)
--- NOTE | 2016-09-30 10:06 | PROGRESS NOTE ---
DATE: 09/30/2016 SUBJECTIVE: Patient feeling better. No real abdominal pain. OBJECTIVE: Vital Signs: Patient is currently afebrile. Her vital signs have been stable. General: No acute distress. Cardiovascular: Regular rate and rhythm. Lungs: Grossly clear. Abdomen: Soft, appropriately tender. Nondistended. ASSESSMENT AND PLAN: A 31-year-old female with severe gallstone pancreatitis status post cholecystectomy. Status post cholecystectomy: Patient is doing well clinically, tolerating clear liquids. She does want more to eat. I will advance her to full liquids. We will continue to follow. Hopefully, once we get her to advance to a low-fat diet, she will be able to be discharged home. We will continue to monitor. cc: Gokul Vasquez MD
--- NOTE | 2016-09-30 14:18 | PROGRESS NOTE ---
DATE: 09/30/2016 SUBJECTIVE: The patient is feeling better today and tolerating clear. She is still having some soreness in her abdomen but nothing like it was. OBJECTIVE: Vital Signs: Blood pressure 109/64, pulse is 74, respirations 16, temperature 97.9. Saturations of 96% on room air. General appearance: White female in no acute distress. HEENT: Anicteric. Clear conjunctivae. Neck: Supple. No JVD. No bruit. Cardiovascular: S1, S2. Normal rate and rhythm. No murmur, rubs, or gallops. Pulmonary: Clear to auscultation bilaterally. GI: Abdomen is pump and still operator to palpation. Still has a drain in place. Musculoskeletal: No clubbing, cyanosis, or edema. LABORATORY: White count 8.67, hemoglobin 10.3, hematocrit 32.3, platelets of 542,000. We are still waiting for the chemistry. ASSESSMENT AND PLAN: This is a 31-year-old, white female admitted to the hospital for severe gallstone pancreatitis: 1. Gallstone pancreatitis status post laparoscopic cholecystectomy with a cholangiogram on the 29 of September and tolerated the procedure well. 2. The patient is on clear liquids. She is having bowel sounds and no bowel movement as yet. We are advancing her diet to a full liquid today. 3. We will to recheck her lab work tomorrow. 4. We will advance diet slowly, probably home within the next several days.
[2016-09-30 17:03] LABS: MANUAL DIFF NEEDED? NO
[2016-09-30 17:57] LABS: BASO% 0.5 % (0.0-0.8); EOS# 0.41 X1000 (0.0-0.7); EOS% 4.7 % (0.0-10.0); HEMATOCRIT 32.3 % (37.0-47.0); HEMOGLOBIN 10.3 g/dL (12.0-16.0); IMM GRAN# 0.06 X1000 (0.0-0.04); IMM GRAN% 0.7 % (0.0-0.5); LYMPH# 2.89 X1000 (1.2-3.4); LYMPH% 33.3 % (20.5-51.1); MCH 27.5 PG (27-31); MCHC 31.9 g/dL (33-37); MCV 86.1 FL (81-99); MONO# 0.74 X1000 (0.11-0.59); MONO% 8.5 % (1.7-9.3); MPV 9.1 FL (7.4-10.4); NEUT% 52.3 % (42.2-75.2); PLT 542 X1000 (130-400); RBC 3.75 XMIL (4.2-5.4)
[2016-09-30 18:04] LABS: INR 1.02; PROTIME 10.7 Seconds (9.2-11.7)
[2016-09-30 18:17] LABS: AGAP 11; BUN 2 mg/dL (8-22); CALCIUM 8.4 mg/dL (8.8-10.2); CHLORIDE 106 mmol/L (98-107); COSMO 279; POTASSIUM 3.3 mmol/L (3.5-5.1); SODIUM 142 mmol/L (136-145); TCO2 25 mmol/L (25-35)
[2016-10-01] MEDS: DILAUDID IV PRN ×7 (00:25→21:59)
[2016-10-01] MEDS: OFIRMEV 1000 MG/ISOTONIC SOLN 100 ML IV SCH ×5 (00:27→17:48)
[2016-10-01] MEDS: CARAFATE LIQUID PO SCH ×4 (01:31→20:09)
[2016-10-01] MEDS: MOVANTIK PO SCH (06:08)
[2016-10-01 07:12] LABS: BASO% 0.4 % (0.0-0.8); EOS# 0.51 X1000 (0.0-0.7); EOS% 4.9 % (0.0-10.0); HEMATOCRIT 30.6 % (37.0-47.0); IMM GRAN# 0.05 X1000 (0.0-0.04); IMM GRAN% 0.5 % (0.0-0.5); LYMPH# 2.81 X1000 (1.2-3.4); LYMPH% 27.1 % (20.5-51.1); MANUAL DIFF NEEDED? NO; MCH 28.2 PG (27-31); MCHC 32.7 g/dL (33-37); MCV 86.2 FL (81-99); MONO# 0.71 X1000 (0.11-0.59); MONO% 6.9 % (1.7-9.3); MPV 8.7 FL (7.4-10.4); NEUT% 60.2 % (42.2-75.2); PLT 615 X1000 (130-400); RBC 3.55 XMIL (4.2-5.4)
[2016-10-01 07:18] LABS: PROTIME 10.5 Seconds (9.2-11.7)
[2016-10-01 07:30] LABS: AGAP 11; BUN 2 mg/dL (8-22); CALCIUM 8.3 mg/dL (8.8-10.2); CHLORIDE 106 mmol/L (98-107); COSMO 277; POTASSIUM 3.4 mmol/L (3.5-5.1); SODIUM 141 mmol/L (136-145); TCO2 24 mmol/L (25-35)
--- NOTE | 2016-10-01 07:41 | PROGRESS NOTE ---
DATE: 10/01/2016 SUBJECTIVE: Patient feeling better. Tolerating full liquids. OBJECTIVE: Vital Signs: Patient is currently afebrile. Her vital signs have been stable. General Examination: No acute distress. Alert, interactive. Cardiovascular: Regular rate and rhythm. Lungs: Grossly clear. Abdomen: Soft, appropriately tender. Nondistended. She does not have any significant epigastric tenderness at this point. ASSESSMENT AND PLAN: A 31-year-old, female with severe gallstone pancreatitis, status post cholecystectomy. Status post cholecystectomy. At this time, the patient is doing well. Tolerating a clear liquid diet. I have advanced her to a regular diet. Hopefully, we can discharge her out in the next day or two. cc: Gokul Vasquez MD
[2016-10-01] MEDS: D5 NS 1,000 ML IV SCH ×2 (07:53→17:55)
[2016-10-01] MEDS: MIRALAX PO SCH (08:01)
[2016-10-01] MEDS: SODIUM CHLORIDE 0.9% INJ SCH ×2 (08:18→20:09)
[2016-10-01] MEDS: PROTONIX IV SCH ×2 (08:18→20:09)
--- NOTE | 2016-10-01 10:59 | PROGRESS NOTE ---
DATE: 10/01/2016 SUBJECTIVE: The patient is feeling better today. Still has a sore abdomen all over. Tolerated about 25% of her regular diet so she did have an appetite. OBJECTIVE: Vital Signs: Blood pressure 110/68, pulse of 76, respirations 20, temperature 98.1 degrees, saturations of 98% on room air. General Appearance: Well-developed, well-nourished, white female in no acute distress. HEENT: Anicteric sclerae. Clear conjunctivae. Neck: Supple. No JVD. No bruit. Cardiovascular: S1 and S2. Normal rate and rhythm. No murmur, rubs, or gallops. Pulmonary: Clear to auscultation bilaterally. GI: Tender to palpation but has good bowel sounds. Extremities: No clubbing, cyanosis, or edema. Laboratory: Her white count was 10.35, hemoglobin 10, hematocrit of 30.6, platelets of 615,000. Chemistry: Sodium 141, potassium is 3.4, chloride 106, bicarb 24, BUN 2, creatinine 0.4, glucose of 85. ASSESSMENT AND PLAN: This is a 31-year-old, white female admitted to the hospital for necrotic pancreatitis, probably due to gallstones. 1. Acute pancreatitis, improving status post laparoscopic cholecystectomy with cholangiogram done on the . Tolerated the procedure well. She is eating. Still has a drain in place. Surgery plans to pull it tomorrow. 2. Deep vein thrombosis prophylaxis. Put the patient on Lovenox. 3. Thrombocytopenia, probably secondary to reactive process. 4. Code status. The patient is a full code.
[2016-10-01] MEDS: POTASSIUM CHLORIDE 20 MEQ/SWI 20 MEQ/100 ML IVPB IV SCH ×2 (11:04→13:03)
[2016-10-01] MEDS: LOVENOX SUBQ SCH (13:03)
[2016-10-02] MEDS: CARAFATE LIQUID PO SCH ×3 (01:08→13:01)
[2016-10-02] MEDS: OFIRMEV 1000 MG/ISOTONIC SOLN 100 ML IV SCH ×3 (01:08→12:51)
[2016-10-02] MEDS: MIRALAX PO SCH ×2 (01:09→08:22)
[2016-10-02] MEDS: DILAUDID IV PRN ×5 (01:09→16:17)
[2016-10-02] MEDS: MOVANTIK PO SCH (06:30)
[2016-10-02] MEDS: D5 NS 1,000 ML IV SCH ×2 (06:30→09:14)
[2016-10-02 06:51] LABS: MANUAL DIFF NEEDED? NO
[2016-10-02 06:57] LABS: BASO% 0.4 % (0.0-0.8); EOS# 0.47 X1000 (0.0-0.7); EOS% 4.9 % (0.0-10.0); HEMATOCRIT 34.1 % (37.0-47.0); IMM GRAN# 0.07 X1000 (0.0-0.04); IMM GRAN% 0.7 % (0.0-0.5); LYMPH# 2.45 X1000 (1.2-3.4); LYMPH% 25.8 % (20.5-51.1); MCH 27.7 PG (27-31); MCHC 32.3 g/dL (33-37); MCV 85.9 FL (81-99); MONO% 6.3 % (1.7-9.3); MPV 8.7 FL (7.4-10.4); NEUT% 61.9 % (42.2-75.2); PLT 692 X1000 (130-400); RBC 3.97 XMIL (4.2-5.4)
[2016-10-02 07:19] LABS: AGAP 12; BUN 2 mg/dL (8-22); CALCIUM 8.6 mg/dL (8.8-10.2); CHLORIDE 105 mmol/L (98-107); COSMO 279; POTASSIUM 4.3 mmol/L (3.5-5.1); SODIUM 142 mmol/L (136-145); TCO2 25 mmol/L (25-35)
[2016-10-02] MEDS: SODIUM CHLORIDE 0.9% INJ PRN (08:22)
[2016-10-02] MEDS: PROTONIX IV SCH (08:22)
[2016-10-02] MEDS: LOVENOX SUBQ SCH (10:46)
--- NOTE | 2016-10-02 12:39 | PROGRESS NOTE ---
DATE: 10/02/2016 SUBJECTIVE: Feels well. She is eating. No more pain. Just sore at her incisions. Had a bowel movement. No nausea. OBJECTIVE: Afebrile. No tachycardia. I reviewed her labs. White count is normal. Hematocrit is 34. Creatinine is normal at 0.5. Drain output serosanguineous. ASSESSMENT AND PLAN: A 31-year-old female with severe gallstone pancreatitis which has resolved. She is now status post laparoscopic cholecystectomy, doing well. I removed her drain this morning. From a surgical standpoint, she would be okay to discharge. She can come back to see me in the next 1-2 weeks for a postoperative check and discussion of her pathology. I have given her my contact information and directions to the office. She will call to make the appointment. I have also given her detailed postsurgical instructions to avoid lifting, call with fevers, worsening pain, jaundice, or any concerns. cc: Ashlyn Lehman MD
[2016-10-02] MEDS ORDERED: NORCO-5 PO PRN (13:52)
--- NOTE | 2016-10-02 14:44 | PROGRESS NOTE ---
DATE: 10/02/2016 SUBJECTIVE: The patient is resting comfortably in bed. She complains of occasional abdominal discomfort whenever she moves, but otherwise she states that she is not nauseous and vomiting or having any problems having a bowel movement. OBJECTIVE: Vital Signs: Temperature 98 degrees, blood pressure 123/79, heart rate 91 respirations 18, O2 saturations 97% on room air. General: This is a young female, lying comfortably in bed, in no acute distress. Head: Normocephalic, atraumatic. Heart: S1, S2 normal. Regular rate and rhythm. Lungs: Clear to auscultation bilaterally. No wheezes, no rales, no rhonchi. Abdomen: Positive bowel sounds. Soft. Extremities: No edema. No cyanosis. No calf tenderness. Neurologic: The patient is alert oriented x3. LABS: White blood cell count 9.5, hemoglobin 11, hematocrit 34, platelets 692,000. Sodium 142, potassium 4.3, chloride 105, CO2 25. BUN 2, creatinine 0.5, glucose 87. Calcium 8.6. ASSESSMENT AND PLAN: 1. Gallstone pancreatitis, status post laparoscopic cholecystectomy. The patient appears to be improving daily. The patient will followup with Dr. Lehman as an outpatient. 2. Suspected peptic ulcer disease. The patient will follow up with Dr. Cedeño as outpatient for consideration of a possible esophagogastroduodenoscopy. 3. Thrombocytosis. This may be reactive. Will consult Hematology for further recommendations. 4. Constipation. Continue on MiraLAX and Movantik. 5. Deep vein thrombosis prophylaxis. Continue Lovenox. cc: Yesika Jacobs MD
[2016-10-02 16:27] VITALS: BP 106/69
[2016-10-02] MEDS ORDERED: AMBIEN PO SCH (21:00)
--- NOTE | 2016-10-15 21:25 | DISCHARGE SUMMARY ---
ADMISSION DATE: 09/21/2016 DISCHARGE DATE: 10/02/2016 FINAL DISCHARGE DIAGNOSES: 1. Gallstone pancreatitis status post laparoscopic cholecystectomy. 2. Suspected peptic ulcer disease. 3. Thrombocytosis. 4. Constipation. CONSULTATIONS REQUESTED DURING THIS HOSPITAL STAY: 1. GI consultation with Dr. Cedeño. 2. General surgery consultation with Dr. Lehman. HOSPITAL COURSE: Ms. Goodman is a 31-year-old female with no significant past medical history who initially presented to the ER with abdominal pain. On admission the patient was noted to have a white blood cell count of 16,000 and amylase was greater than 7500 and lipase greater than 3000. Also the patient's total bilirubin was 4.3 with elevated LFTs. The patient was admitted to the hospitalist service and GI was consulted. A CT of the abdomen and pelvis was done that revealed severe acute pancreatitis and sludge and stones in the gallbladder. This was later followed up with a abdominal ultrasound that showed cholelithiasis and thickening of the gallbladder wall. General surgery was also consulted. Eventually the patient was taken to the OR on 09/29/2016 at which time a laparoscopic cholecystectomy was performed. Following the procedure the patient did well and had no complications. It was noted however that the patient's platelet count was elevated at 692,000. This was thought to be reactive in nature. The patient continued to improve clinically and was cleared for discharge on 10/02/2016. DISCHARGE MEDICATIONS: 1. Movantik 25 mg p.o. before breakfast. 2. Protonix 40 mg p.o. daily. 3. Carafate 1 g oral every 6 hours. 4. [place] 5/325 one tab oral every 4 hours p.r.n. for pain. 5. MiraLAX 17 g p.o. twice a day. DISCHARGE DIET: [place] low-fat diet. FOLLOWUP INSTRUCTIONS: The patient has been advised to follow up with Dr. Lehman as scheduled by his clinic. The patient will need to follow up with Dr. Cedeño in 2 weeks. cc: Yesika Jacobs MD
== END 2016-10-02 18:46 | disposition home or self-care (01) ==
LOC: P.ED 17:34 → 3N 22:42 → SUATTDRO 22:42
PROVIDERS: ATTEND Internal Medicine